=== PATIENT | female | born 2000 | race Two or more races ===

== ENCOUNTER 2020-02-25 21:34 | Emergency (ER) | payer SELFPAY ==
[2020-02-25 21:39] VITALS: BP 123/55; PULSE 107; RESP 18; TEMP 36.8; O2SAT 100
--- NOTE | 2020-02-25 23:39 | ED.GENADULT ---
HPI - General Adult General Chief complaint: Headache Stated complaint: cough, been around someone positive for covid Time Seen by Provider: 02/25/20 23:22 History of Present Illness HPI narrative: Patient presents with her father for multiple complaints. She had a cold exposure 2 days ago. He was a coworker. And yesterday she started with cough, headache, loss of smell. She does not have any pain. She has not had a fever. She is worried because she has a history of asthma. She has not been wheezing. She has both an inhaler and nebulizer at home. She has not recently been on prednisone. She has an appointment in 2 days for COVID testing at the local [facility]. Her boyfriend also has symptoms he also has an appointment for the COVID. She lives with her boys. 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 She has been taking ibuprofen for her symptoms. Surgeries include bilateral myringotomy tube. She does not smoke cigarette, she occasionally drinks alcohol, she does not do marijuana. Onset (ago): day(s) Location: head Severity: mild Related Data Allergies Allergy/AdvReac Type Severity Reaction Status Date / Time cefprozil Allergy Mild DIRRHEA Verified 11/18/17 16:11 Review of Systems Review of Systems: Narrative: CONSTITUTIONAL: Denies fever, chills, or sweats. EYES: Denies visual changes, redness, or discharge. ENT: Denies rhinorrhea, congestion, sore throat, or otalgia. CARDIOVASCULAR: Denies chest pain, palpitations, or edema. RESPIRATORY: She has cough but not dyspnea. GASTROINTESTINAL: Denies abdominal pain, nausea, vomiting, or diarrhea. GENITOURINARY: Denies dysuria or hematuria. SKIN: Denies rash or itching. MUSCULOSKELETAL: Denies back pain, joint pain, or myalgia. NEUROLOGIC: She has headache, but not numbness, or weakness. She says she cannot smell. . PMFSH Surgical History Surgical History History of myringotomy Social History Social History (Updated 02/25/20 @ 23:42 by Malinda Armijo MD) Smoking status: Never smoker Alcohol intake: current Substance use: never Exam Narrative: Exam Narrative: GENERAL: Well-appearing, well-nourished, and in no acute distress. HEAD: Normocephalic, atraumatic. EYES: PERRLA and EOMI. ENT: Nares clear, no rhinorrhea or epistaxis. Mucous membranes moist. NECK: Supple. CHEST: Clear to auscultation. No respiratory distress. HEART: Regular rate and rhythm. No murmur heard. Normal peripheral pulses. ABDOMEN: Soft, nontender, nondistended, normal active bowel sounds. EXTREMITIES: Normal range of motion. No edema. SKIN: Warm, dry, no rash. NEURO: No focal deficits. Alert and oriented x3. PSYCH: Normal mood and affect. Course Vital Signs Vital signs: Vital Signs Temperature 98.3 F 02/25/20 21:39 Pulse Rate 107 H 02/25/20 21:39 Respiratory Rate 18 02/25/20 21:39 Blood Pressure 123/55 L 02/25/20 21:39 Pulse Oximetry 100 02/25/20 21:39 Temperature 98.3 F 02/25/20 21:39 Pulse Rate 107 H 02/25/20 21:39 Respiratory Rate 18 02/25/20 21:39 Blood Pressure 123/55 L 02/25/20 21:39 Pulse Oximetry 100 02/25/20 21:39 Medical Decision Making Medical Records Medical records reviewed: Yes I reviewed the patient's medical records. Vital Signs Vital Signs: Vital Signs Temperature 98.3 F 02/25/20 21:39 Pulse Rate 107 H 02/25/20 21:39 Respiratory Rate 18 02/25/20 21:39 Blood Pressure 123/55 L 02/25/20 21:39 Pulse Oximetry 100 02/25/20 21:39 Temperature 98.3 F 02/25/20 21:39 Pulse Rate 107 H 02/25/20 21:39 Respiratory Rate 18 02/25/20 21:39 Blood Pressure 123/55 L 02/25/20 21:39 Pulse Oximetry 100 02/25/20 21:39 Discharge Plan Discharge Clinical Impression: Cough, Loss of sense of smell Headache Qualifiers: Headache type: unspecified Headache chronicity pattern: unspecified pattern Intractability: not intractable Qualified Code(s): R51 - Headache
[2020-02-25 23:45] VITALS: BP 123/65; PULSE 87; RESP 18; O2SAT 99
== END 2020-02-25 23:45 | disposition home or self-care (01) ==
PROVIDERS: Emergency Provider Emergency Medicine
DX: R05 Cough (principal); R51 Headache; R43.9 Unspecified disturbances of smell and taste; Z20.828 Contact with and (suspected) exposure to other viral communicable diseases
CPT/HCPCS: 99281

== ENCOUNTER 2022-03-20 11:56 | Emergency (ER) | payer SELFPAY ==
[2022-03-20 12:24] VITALS: BP 132/60; PULSE 73; RESP 18; TEMP 36.6; O2SAT 100
--- NOTE | 2022-03-20 12:29 | PC.NURSE ---
pt given container to collect specimen.
--- NOTE | 2022-03-20 16:41 | PC.NURSE ---
pt up to desk to notify RN she is leaving.
== END 2022-03-20 16:41 | disposition left against medical advice (07) ==
LOC: ANHED 16:59
PROVIDERS: Emergency Provider Emergency Medicine
DX: R19.7 Diarrhea, unspecified (principal)
CPT/HCPCS: 87045; 87427; 99199; 99283

== ENCOUNTER 2023-05-20 11:34 | Outpatient (CLI) | payer BC, SELFPAY ==
--- NOTE | ~2023-05-20 | XR_ITS ---
XR abdomen/kub 1V 05/20/2023 12:09 INDICATION: Irritable bowel syndrome. TECHNIQUE: KUB COMPARISON: None FINDINGS: Bowel gas pattern is normal. There is no evidence of free air, mass, organomegaly, ascites or obstruction. No abnormal calculi are seen. The bones appear intact. IMPRESSION: 1: No acute abdominal abnormality identified. Reviewed, dictated and finalized at location B.
[2023-05-20 12:04] LABS: Hematocrit 41.3 % (37.0-47.0); Mean Corpuscular HGB Conc 31.5 g/dl (32-36); Mean Corpuscular Hemoglobin 28.1 pg (26-34); Mean Corpuscular Volume 89.2 fl (80-100); Mean Platelet Volume 11.5 fl (7.4-10.4); Platelet Count Result 227 k/mm3 (150-375); Red Blood Count 4.63 M/mm3 (4.2-5.4); Red Cell Distribution Width 13.5 % (11.5-14.5); White Blood Count 6.2 K/mm3 (4.5-10.0)
[2023-05-20 12:14] LABS: Alanine Aminotransferase 12 U/L (6-35); Albumin Level 4.6 g/dL (3.5-5.1); Alkaline Phosphatase 54 U/L (38-126); Anion Gap 4 mmol/L (8-16); Aspartate Amino Transferase 20 U/L (14-36); Bilirubin,Total 0.5 mg/dL (0.2-1.3); Blood Urea Nitrogen 8 mg/dL (7-17); Calcium 9.6 mg/dL (8.4-10.2); Carbon Dioxide 31 mmol/L (22-30); Chloride 103 mmol/L (98-107); Estimated Glomerular Filt Rate > 60; Glucose 95 mg/dL (65-110); Sodium 138 mmol/L (137-145)
[2023-05-20 13:05] LABS: Erythrocyte Sedimentation Rate 16 mm/hr (0-20)
[2023-05-27 17:32] LABS: Immunoglobulin A 257 mg/dL (47-310)
== END 2023-05-20 11:35 | disposition home or self-care (01) ==
LOC: ANHLAB 11:36
PROVIDERS: Visit Provider Nurse Practitioner
DX: R11.10 Vomiting, unspecified (principal); F41.9 Anxiety disorder, unspecified; K58.2 Mixed irritable bowel syndrome; R11.0 Nausea; R13.10 Dysphagia, unspecified; R14.0 Abdominal distension (gaseous)
CPT/HCPCS: 36415; 74018; 80053; 82784; 84443; 85027; 85652; 86038; 86039; 86140; 86364

== ENCOUNTER 2023-05-29 02:43 | Day surgery (SDC) | payer BC, SELFPAY ==
--- NOTE | 2023-05-27 11:48 | SUR.PREOP ---
Patient called regarding upcoming procedure. Reviewed preop instructions, appointment times, and procedure prep.
[2023-05-29 08:10] VITALS: BP 111/47; PULSE 85; RESP 18; TEMP 36.1; O2SAT 98; BMI 30.4
[2023-05-29] MEDS: LACTATED RINGERS 1,000 ML 150 ML IV CONT (09:05)
--- NOTE | 2023-05-29 09:07 | WPDANESEPPF ---
Anes - Initial Pre Proc Eval Procedure: Operation Date: 05/29/23 09:30 Proposed Procedures p Esophagogastroduodenoscopy - Geo Mills MD Date/Time: 05/29/23 09:07 Surgeon: Geo Mills MD Pre Op Diagnosis: vomiting,dysphagia,nausea,abdominal distension Patient Data Age: 23 Gender: F Height: 1.6 m Weight: 77.8 kg Last Vital Signs Temp 97 F L 05/29/23 08:10 Pulse 85 05/29/23 08:10 Resp 18 05/29/23 08:10 BP 111/47 L 05/29/23 08:10 Pulse Ox 98 05/29/23 08:10 O2 Del Method Room Air 05/29/23 08:10 Allergies Allergy/AdvReac Type Severity Reaction Status Date / Time cefprozil Allergy Mild DIRRHEA Verified 05/28/23 08:53 Home Medications Medication Instructions Recorded Confirmed Type albuterol 90 mcg/actuation aerosol 90 mcg inhalation DAILY PRN 05/13/23 05/28/23 History inhaler Shortness Of Breath dicyclomine 10 mg capsule 10 mg PO QID PRN Diarrhea 05/13/23 05/28/23 History desipramine 10 mg tablet 10 mg PO QHS #90 tabs 05/22/23 05/28/23 Rx Patient hx anesthesia problems: none Family hx anesthesia problems: none Results Review: All pre-operative results and documents have been reviewed as part of the pre-operative evaluation. [facility] Past Medical History Medical History (Updated 05/20/23 @ 12:23 by Debbie Godoy APRN) Abdominal bloating Abdominal distension Abdominal tenderness BMI 30.0-30.9,adult Chronic nausea Dysphagia Irritable bowel syndrome with alternating bowel habits Regurgitation of food Surgical History Surgical History History of myringotomy Family History Family History Father No problems noted. Mother Chronic migraine Sibling Asthma Social History Social History (Updated 05/20/23 @ 10:37 by JOSE R Sanders) Smoking status: Never smoker Second hand tobacco smoke exposure: No Alcohol intake: current Alcohol use details: socially Substance use: current Substance use type: marijuana Other substance usage details: socially Last use: 05/15/23 Lack of Transportation: No Lack of Food: Never True Current Housing: I Have Housing Concerned About Future Housing: No Difficulty Paying Gas/Electric Bills: No Difficulty Paying for Meds: No Currently Unemployed: No Education: Bachelor's Degree Difficulty w/ Childcare or Family Care: No Living arrangements: with roommate(s) Occupation/Education: occupation 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 Informed Consent: The patient's anesthetic plan and its attendant risks and benefits were discussed with the patient/family/POA. Questions were solicited and answers provided to the satisfaction of the patient/family/POA.
--- NOTE | 2023-05-29 09:32 | WPDHPUPDATE1 ---
History and Physical Update Update Date/Time: 05/29/23 09:32 History and Physical has been reviewed, including an updated exam of the patient. There are NO changes in the patient's condition. Risks, benefits, and alternatives have been discussed and questions answered. Patient agrees to proceed with procedure.
[2023-05-29 09:51] VITALS: BP 119/49; PULSE 80; RESP 18; O2SAT 99
[2023-05-29 10:01] VITALS: BP 99/54; PULSE 80; RESP 18; O2SAT 99
[2023-05-29 10:12] VITALS: BP 117/45; PULSE 80; RESP 20; O2SAT 100
== END 2023-05-29 10:15 | disposition home or self-care (01) ==
PROVIDERS: Visit Provider Internal Medicine Gastroenterology
PROC: 0DJ08ZZ Inspection of Upper Intestinal Tract, Via Natural or Artificial Opening Endoscopic (ICD-10-PCS; CPT 43235; principal; 2023-05-29 09:30)
DX: K29.80 Duodenitis without bleeding (principal); K29.50 Unspecified chronic gastritis without bleeding; K58.2 Mixed irritable bowel syndrome; Z79.51 Long term (current) use of inhaled steroids; F12.90 Cannabis use, unspecified, uncomplicated
CPT/HCPCS: 43239; 88305; J2001; J2704; J7120

== ENCOUNTER 2023-07-16 08:37 | Outpatient (CLI) | payer BC, SELFPAY ==
[2023-07-24 19:27] LABS: Calprotectin, Stool 196 mcg/g; Pancreatic Elastase, Stool >500 mcg/g
== END 2023-07-16 08:38 | disposition home or self-care (01) ==
LOC: ANHLAB 08:38
PROVIDERS: Visit Provider Nurse Practitioner
DX: F41.9 Anxiety disorder, unspecified (principal); K58.2 Mixed irritable bowel syndrome; R11.0 Nausea; R11.10 Vomiting, unspecified; R13.10 Dysphagia, unspecified; R14.0 Abdominal distension (gaseous)
CPT/HCPCS: 82653; 83993

== ENCOUNTER 2024-09-07 07:35 | Outpatient (CLI) | payer BC, SELFPAY ==
--- NOTE | ~2024-09-07 | CT_ITS ---
EXAMINATION: CT abdomen pelvis w con DATE: 09/07/2024 07:59 INDICATION: Pelvic pain TECHNIQUE: Computed tomography (CT) of the abdomen and pelvis was performed with 100 cc Omnipaque 350 intravenous contrast. The dose-length product was 402.35 mGy-cm. Automated exposure control and iter ative reconstruction technique were employed. COMPARISON: None. FINDINGS: Lung bases unremarkable. No significant pleural or pericardial effusion. Heart size normal. Trace free fluid in the pelvis, likely physiologic. Nonobstructive bowel gas pattern. The liver, spl een, pancreas, adrenal glands and kidneys are unremarkable. Gallbladder is present. No free air. No s ignificant vascular abnormality. No lymphadenopathy. No abnormal pelvic masses. No acute osseous abno rmality. No evidence for hernia. IMPRESSION: 1. No acute abdominal abnormality. No findings to account for patient's symptoms. Reviewed, dictated and finalized at location B. MARKETING SPECIALIST IMPRESSION: 1. No acute abdominal abnormality. No findings to account for patient's symptom s.
--- OUTSIDE RECORDS SUMMARY | 2024-09-07 07:39 | XMS_ITS | Continuity of Care Document ---
Author Organization [facility] Address [address] [place] [address] Phone Care Team Providers Care Scooping Machine Tender Name Role Phone Juan Antonio Martin MD Unavailable Unavailable Allergies, Adverse Reactions, Alerts Substance Reaction Status Criticality cefprozil Active No Information strawberry Active No Information ALMOND Active No Information celery Active No Information carrot Active No Information pear Active No Information nectarine Active No Information peach Active No Information plum Active No Information apple Active No Information Medications Medication Instructions Dosage Effective Dates (start - stop) Status Comments QVAR (unknown strength) Not Available - Active NASONEX (unknown strength) Not Available - Active ZYRTEC (unknown strength) Not Available - Active Procedures Procedure Date OFFICE/OUTPATIENT VISIT EST OFFICE/OUTPATIENT VISIT EST OFFICE/OUTPATIENT VISIT EST OFFICE/OUTPATIENT VISIT EST OFFICE/OUTPATIENT VISIT EST OFFICE/OUTPATIENT VISIT EST OFFICE/OUTPATIENT VISIT EST OFFICE/OUTPATIENT VISIT EST OFFICE/OUTPATIENT VISIT EST Advance Directives Directive Yes / No Effective Date File Name No Information Encounters Encounter Description Practice Location Reason(s) For Visit Diagnoses Date Provider Providers Copied on Encounter OFFICE/OUTPA TIENT VISIT EST [facility], [address] [place], [place] [address], [place], [address], tel:[phone] [facility] Patellofemoral stress syndrome of right knee Sep-2 201 7 Mario Romano. [address] [place] [address], [id number] . tel:[phone] OFFICE/OUTPA TIENT VISIT EST [facility], [address], [address], [place] tel:[phone] [facility] Patellofemoral stress syndrome of right knee Aug-0 8-201 7 Stazzone Juan Antonio. [address] [place], [place], [id number] . tel: [phone] OFFICE/OUTPA TIENT VISIT EST [facility], [address], [address], [place] tel:[phone] [facility] Patellofemoral stress syndrome of right knee 5-201 7 Stazzone Juan Antonio. [address] [place], [place], [id number] . tel: [phone] OFFICE/OUTPA TIENT VISIT [facility], [address], [address], [place] tel:[phone] [facility] Patellofemoral stress syndrome of right knee November-3 0-201 7 Stazzone Juan Antonio. [address] [place], [place], [id number] . tel: [phone] [facility], [address] [place] [address], [address], [place] tel:[phone] [facility] Patellofemoral stress syndrome of right knee November-2 5-201 7 Stazzone Juan Antonio. [address] [place], [place], [id number] . tel: [phone] OFFICE/OUTPA TIENT VISIT [facility], [address] [place] [address], [address], [place] tel:[phone] [facility] Patellofemoral stress syndrome of right knee Apr-2 0-201 7 Stazzone Juan Antonio. [address] [place], [place], [id number] . tel: [phone] OFFICE/OUTPA TIENT VISIT [facility], [address], [place], [address], [place] tel:[phone] [facility] Patellofemoral stress syndrome of right knee Sep- 7 Stazzone Juan Antonio. [address] [place], [place], [id number] . tel: [phone] OFFICE/OUTPA TIENT VISIT [facility], [address] [address], [place], [address], [place] tel:[phone] [facility] Patellofemoral stress syndrome of right kneeShin splints, right, subsequent encounter Sep-0 7 Stazzone Juan Antonio. [address] [place] [address], [id number] . tel: [phone] OFFICE/OUTPA TIENT VISIT [facility], [address], [address], [place] tel:[phone] [facility] Right foot painShin splints, right, subsequent encounter 7 Stazzone Juan Antonio. [address] [place] [address], [id number] . tel: [phone] OFFICE/OUTPA TIENT VISIT [facility], [address] [place] [address], [address], [place] tel:[phone] [facility] Pain of right lower extremityShin splints, right, initial encounterRight foot pain 7 Stazzone Juan Antonio. [address] [place] [address], [id number] . tel: [phone] [facility], [address] [place] [address], [address], [place] tel:[phone] [facility] Medial tibial stress syndrome, right, subsequent encounter Sep- 3-201 6 Azul Prerna. [address] [place] [address], [address], [place], [place], [id number] . tel: [phone] [facility], [address] [facility], [place], [address], [place] tel:[phone] [facility] Medial tibial stress syndrome, right, subsequent encounter 6 Azul Prerna. [address], [address], [place], [place], [id number] . tel: [phone] [facility], [address] [facility], [place], [address], [place] tel:[phone] [facility] Right leg pain 6 Azul Prerna. [address] [facility], [address], [place], [place], [id number] . tel: [phone] [facility], [address] [facility], [place], [address], [place] tel:[phone] [facility] Medial tibial stress syndrome, right, subsequent encounter 0 6 Azul Prerna. [address] [facility], [address], [place], [place], [id number] . tel: [phone] [facility], [address] [facility], [place], [address], [place] tel:[phone] [facility] Medial tibial stress syndrome, right, initial encounter 6 Azul Prerna. [address] [facility], [address], [place], [place], [id number] . tel: [phone] [facility], [address] [place], [place] [address] [address], [place], [address], [place] tel:[phone] [facility] foot (chief complaint) Right ankle tendonitis 4 Azul Prerna. [address] [facility] [address], [address], [place], [place], [id number] . tel: [phone] Family History Family Member Type Diagnosis Age At Onset No Information Payers Payer name Insurance type Covered alliance party ID Authormoniquea tiajay(s) [facility] Choice/Choice Plus E2 [id number] Social History Type Description Quantity Date Captured Comments Sex Female Smoking Status No Information Chief Complaint And Reason For Visit No Information Reason For Referral Reason For Referral No Information Plan Of Treatment Date Type Action Status Referral Ordered: RADEX KNE COMPL 4/MORE VIEWS RT ordered Referral Ordered: RADEX KNE 3 VIEWS RT ordered Referral Ordered: RADEX FOOT COMPL MINIMUM 3 VIEWS RT ordered Referral Ordered: MRI LXTR OTH/THN JT C-MATRL RT tibia Appointment date/timeframe: 08/10/2015 ordered Referral Ordered: RADEX TIBFIB 2 VIEWS RT ordered Referral Ordered: RADEX ANKLE COMPL MINIMUM 3 VIEWS RT ordered History Of Present Illness Encounter Date Complaint History Of Prese nt Illness foot Functional Status Date Functional Assessmen t No Information Instructions Date Instruction Additional Infor mation Take medication as directed. Rel ated to Patellofemoral stress syndrome of right knee Activity as tolerated. Related t o Patellofemoral stress syndrome of right knee Avoid prolonged bed rest Related to Patellofemoral stress syndrome of right knee Assessments Type Assessment Date assessment Patellofemoral stress syndrome o f right knee Patient Care Teams Name Effective Dates (start - stop) Status Members No Information
--- OUTSIDE RECORDS SUMMARY | 2024-09-07 07:39 | XMS_ITS | Clinical Summary ---
Author Organization [facility] Address [address] [place] [address] Care Team Providers Care Senior Bookkeeper Name Role Phone Rowena East MD Primary Care Provider [phone] Social History Tobacco Use Types Packs/Day Years Used Date Smoking Tobacco: Never Assessed Comments Unknown Sex and Gender Information Value Date Recorded Sex Assigned at Not on file Legal Sex Female 2:36 PM CDT Gender Identity Not on file Sexual Orientation Not on file Plan of Treatment Health Maintenance Due Date Last Done Comments Cervical Cancer Screening Pa p Smear (Age 21 to 29) Every 3 Years 2000 Cervical Cancer Screening 2000 Annual Physical 01/17/2003 HPV Vaccines (1 - 3-dose series) 01/17/2015 Hepatitis C 01/17/2018 DTaP, Tdap and Td Vaccines ( 1 - Tdap) 01/17/2019 Hepatitis B Vaccines (1 of 3 - 19+ 3-dose series) 01/17/2019 COVID-19 Vaccine ( - 2023-2 5 season) 2024 Influenza Adult (#1) 2024 Meningococcal B Vaccine Aged Out No l onger eligible based on patient's age to complete this topic Meningococcal Vaccine Aged Out No octavia iris eligible based on patient's age to complete this topic Pneumococcal Vaccine: Pediat rics (0 to 5 Years) and At-Risk Patients (6 to 64 Years) Aged Out No longer eligible b ased on patient's age to complete this topic RSV Immunizations Under 20 Months Aged Out No longer eligible based on patient's age to complete this topic Insurance [facility] Care Teams Senior Bookkeeper Relationship Specialty Start Date End Date Rowena East MD PCP - General FAMILY PRACTICE 11/19/22
--- OUTSIDE RECORDS SUMMARY | 2024-09-07 07:39 | XMS_ITS | Referral Summary ---
Author Organization [facility] Physician Office Building [address] [place] [id number] Care Team Providers Care Cad Design Engineer Name Role Phone Latonya Yanes NP Primary Care Provider [phone] Claribel Lorenzana MD Unavailable [phone] Veena Merida MD Unavailable Encounters Date Type Department Care Team Description 06/07/2024 12:30 PM [employer]UCATION TEACHER Telemedicine [facility] Virtual Care [address] [place] [id number] Shayna Shabazz NP Acute upper respiratory infection (Primary Dx) 06/07/2024 Patient Self-Triage [facility] [address] [place] [address] Mychart, Generic Provider from Last 3 Months Allergies Active Allergy Reactions Criticality Noted Date Comments Cefprozil Nausea & Vomiting,Na usea And Vomiting Low 08/15/2010 Fruit Extracts Itching Low 06/21/2020 Bananas, apples, peaches, nectarines, plums Grass Pollen Itching Low 06/21/2020 Medications Qvar RediHaler 80 mcg/actuation inhaler TAKE 2 PUFFS BY MOUTH TWICE A DAY 0 Active albuterol (PROAIR DIGIHALER) 90 mcg/actuation inhaler Active nebulizers misc Acti ve olopatadine (PATADAY) 0.2 % ophthalmic solution INSTILL 1 DROP IN EACH EYE ONCE DAILY IF NEEDED. 0 Active fluticasone propionate (FLONASE) 50 mcg/actuation nasal spray SPRAY 1 TO 2 SPRAYS IN NOSTRIL ONCE DAILY 0 Active vit A-vit U-sgwaia-wyxm-joshua er 2,500 unit-100 mg-2,500 mcg capsule Take 1 tablet by mouth daily Active hydrOXYzine (VISTARIL) 25 mg capsule Take 1 capsule (25 mg total) by mouth 3 (three) times a day as needed for anxiety 30 capsule 0 Active famotidine (PEPCID) 40 mg tablet Take 1 tablet (40 mg total) by mouth nightly as needed for heartburn 90 tablet 1 1 Active folic acid (FOLVITE) 1 mg tablet Take 1 tablet (1,000 mcg total) by mouth daily 0 Active dicyclomine (BENTYL) 10 mg capsule Take 1 capsule (10 mg total) by mouth 4 (four) times a day 3 Active desipramine (NOPRAMIN) 10 mg tablet 3 Active omeprazole (PriLOSEC) 40 mg capsule 40 MG ORALLY DAILY 3 Active ondansetron ODT (ZOFRAN-ODT) 4 mg disintegrating tabletIndications: Nausea vomiting and diarrhea Take 1 tablet (4 mg total) by mouth every 8 (eight) hours as needed for nausea or vomiting 20 tablet 4 Active Active Problems Problem Noted Date Diagnosed Date Annual physical exam 03/04/2021 Assessment & Plan (03/04/2021 4:36 PM CDT): -Discussed recommendations for exercise at least 30 minutes moderate to vigorous exercise most days of the week. (minimum 150 minutes weekly) -Discussed MyPlate recommendations and increasing fruits and vegetables. -Cancer screening:; cervical cancer screening- last pap never, due now (has WWE scheduled with [facility]); annual clinical breast exam and monthly self breast exam encouaged. -Immunizations: Tdap today, yearly influenza vaccines -Continue routine dental and vision care. -Labs ordered today: Screen for diabetes mellitus: CMP- up to date; normal Screen for lipid disorders: Lipid profile Screen for venereal disease: declined BMI 24.0-24.9, adult 03/04/2021 Assessment & Plan (03/04/2021 4:33 PM CDT): Patient is a healthy normal BMI. Continue diet and exercise Positive CHRISTIANO (antinuclear antibody) 07/04/2020 Overview (07/04/2020): 06/21/2020 referral placed to rheumatology for positive CHRISTIANO Assessment & Plan (08/16/2020 9:27 AM [employer] SPECIAL EDUCATION TEACHER): Patient is currently being worked up by rheumatology for psoriatic arthritis. She was started on methotrexate once weekly and folic acid supplementation. Recommend continue follow-up with Rheumatology. Mixed anxiety and depressive disorder 06/21/2020 Assessment & Plan (03/04/2021 4:35 PM CDT): Depression is improved. Has failed sertraline and escitalopram (they were too sedating) never tried Wellbutrin 150 mg once daily. Improving with therapy and lifestyle modifications. Continue current treatment. -Patient denied suicidal ideation today, however discussed suicide hotline and call 911/ go to emergency department if suicidal. -Continue therapy. Assessment & Plan (11/27/2020 12:23 PM CDT): Depression is severe. Discussed intensive program for depression. Psychiatry consultation placed at last office visit in July 2020. Discussed the importance of follow through. She was also given resources for [facility] urgent care today. Has failed sertraline and escitalopram (they were too sedating), Start Wellbutrin 150 mg once daily -Discussed potential side effects of medication including adjustment phase including dizziness, nausea, and headache. Discussed not to stop anti-depressant medications abruptly and take only as prescribed. -Patient denied suicidal ideation today, however discussed suicide hotline and call 911/ go to emergency department if suicidal. -Continue therapy. Assessment & Plan (08/16/2020 9:28 AM MID[employer]CHO[employer] SPECIAL EDUCATION TEACHER): Depression is severe. Discussed intensive program for depression. Psychiatry consultation placed today. Stops sertraline due to side effects. Start escitalopram 10 mg daily. -Discussed potential side effects of medication including adjustment phase including dizziness, nausea, and headache. Discussed not to stop anti-depressant medications abruptly and take only as prescribed. -Patient denied suicidal ideation today, however discussed suicide hotline and call 911/ go to emergency department if suicidal. -Continue therapy. Assessment & Plan (06/21/2020 11:08 AM MIDD[employer]CHOOL SPECIAL EDUCATION TEACHER): Start sertraline, gradually taper up to 50 mg daily. Hydroxyzine p.r.n. for increased anxiety and sleep. Recommend avoiding marijuana as this can worsen depression. -Discussed potential side effects of medication including adjustment phase including dizziness, nausea, and headache. Discussed not to stop anti-depressant medications abruptly and take only as prescribed. -Patient denied suicidal ideation today, however discussed suicide hotline and call 911/ go to emergency department if suicidal. -Continue therapy. 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 Constipation was seen on ultrasound. Sample of Linzess was given to patient. Assessment & Plan (03/04/2021 4:34 PM CDT): Recommend continue MiraLax p.r.n.. Recommended Metamucil daily. Increase fiber daily. Recommend continuing to push hydration- 8 glasses water daily. Start nortriptyline once nightly. Reviewed potential side effects. If worsening or not improving in 6 weeks recommend Gastroenterology consultation. Assessment & Plan (08/16/2020 9:29 AM MIDDLE [employer]CHOOL SPECIAL EDUCATION TEACHER): Improved with Miralax PRN. Assessment & Plan (06/21/2020 11:09 AM MIDD[employer]CHOOL SPECIAL EDUCATION TEACHER): Colonoscopy unremarkable 05/02/2011. Recommended treating her anxiety to see if IBS symptoms improved. Can use MiraLax p.r.n. for constipation. Recommend famotidine for her GERD. Increase fiber in her diet and have small frequent meals to ensure adequate nutrition. Will have close clinical follow-up. If she starts having more severe weight loss would recommend re-evaluation with GI. Gastroesophageal reflux disease without esophagi tis 06/21/2020 Assessment & Plan (08/16/2020 9:29 AM MIDD[employer] SCHOOL SPECIAL EDUCATION TEACHER): Improved with famotidine 40 mg nightly PRN Likely triggered from anxiety/ stress. Discussed avoiding caffeine, limiting NSAIDS, and avoiding spicy foods that may trigger GERD symptoms. -Avoid eating 2 hours prior to bed. Assessment & Plan (06/21/2020 11:10 AM MIDD[employer] SCHOOL SPECIAL EDUCATION TEACHER): Start famotidine 40 mg nightly. Likely triggered from anxiety/ stress. Discussed avoiding caffeine, limiting NSAIDS, and avoiding spicy foods that may trigger GERD symptoms. -Avoid eating 2 hours prior to bed. Psoriatic arthritis ([facility]/HCC) 06/21/2020 Assessment & Plan (03/04/2021 4:37 PM CDT): Seeing Dr. Mayers with rheumatology. On methotrexate once weekly and folic acid supplementation. Assessment & Plan (06/21/2020 11:07 AM MIDD[employer]CHOOL SPECIAL EDUCATION TEACHER): Currently stable. Patient has history of polyarthralgia as well. Will check CHRISTIANO today. Family history of polymyalgia rheumatica in her maternal grandmother, otherwise no autoimmune conditions. Dysmenorrhea 07/09/2016 PMDD (premenstrual dysphoric disorder) 6 Lactose intolerance 02/04/2010 Other psoriasis 05/29/2008 Seasonal allergic rhinitis due to pollen 008 Mild persistent asthma Assessment & Plan (03/04/2021 4:34 PM CDT): Asthma is well controlled on current therapy. Managed by her senior software engineer analytics. Assessment & Plan (06/21/2020 11:08 AM MIDD[employer]CHOOL SPECIAL EDUCATION TEACHER): Asthma is well controlled on current therapy. Managed by her senior software engineer analytics. Resolved Problems Problem Noted Date Diagnosed Date Resolved Date IUD (intrauterine device) in place 11/27/2020 09/10/2021 Assessment & Plan (09/10/2021 5:56 PM MIDDLE SCHOOL SPECIAL EDUCATION TEACHER): Mirena IUD removed 05/06/21. Assessment & Plan (11/27/2020 12:22 PM CDT): Referral placed to gynecology for her well-woman care per her request. Mild intermittent asthma 08/31/201209/2019 Still's murmur 08/18/2010 03/04/2021 Contact dermatitis and other eczema, due to unspecified cause 05/29/2008 03/04/2021 Immunizations Immunization Administration Dates Next Due DTaP 02/17/2005, 1,2000,05/19,2000 HPV, Quadrivalent 05/30/2013,06/06/2011,02/28/20 11 Hep A, Adult 03/15/2008,2007 Hep B Vaccine 03/17/2003,2000,2000 HiB 03/17/2003,2000,2000 IPV 02/17/2005, 1,2000,03/11 Influenza, Quadrivalent, Spl it, Preservative Free, Intramuscular 06/21/2020 Influenza, Trivalent, IM (MDV) 06/05/2012 Influenza, Unspecified 05/21/2019(Deferred: Annabelle ent Refused) MMR 02/17/2005,02/02/2001 Meningococcal B, OMV (Bexsero) 01/24/2016 Meningococcal Conjugate (Menveo) 01/24/2016,02/17 Pfizer SARS-CoV-2 Monovalent Vaccination (12+ Yrs) PURPLE 10/15/2020,09/24/2020 Pneumococcal Conjugate 7-Valent 2000,03/11 Tdap 03/04/2021,02/27/2011 Varicella 2007,02/02/2001 Social History Tobacco Use Types Packs/Day Years Used Date Smoking Tobacco: Never Smokeless Tobacco: Never Alcohol Use Standard Drinks/Week Comments Yes 2 (1 standard drink = 0.6 oz pur e alcohol) very infrequent PHQ-2 Answer Date Recorded PHQ-2 Total Score (If total score is 3 or more points, staff should administer the PHQ-9) 0 03/04/2021 Personal Safety Answer Date Recorded Getting School Help Needed Not on file 08/26 Comments No Sex and Gender Information Value Date Recorded Sex Assigned at Not on file Legal Sex Female 5:13 AM [employer] SCHO[employer] SPECIAL EDUCATION TEACHER Gender Identity Female 06/21/2020 8:16 AM [employer] SCHOOL SPECIAL EDUCATION TEACHER Sexual Orientation Not on file Occupation Industry Job Start Date Job End Date Student Not on file Not on file Not on file Last Filed Vital Signs Vital Sign Reading Time Taken Comments Blood Pressure 116/64 08/26/2023 11:45 AM MID[employer] SCHOOL SPECIAL EDUCATION TEACHER Pulse 73 08/26/2023 11:45 AM MID[employer] SCHOOL SPECIAL EDUCATION TEACHER Temperature 36.5 C (97.7 F) 08/26/2023 11:45 AM [employer] SCHOOL SPECIAL EDUCATION TEACHER Respiratory Rate 16 08/26/2023 11:45 AM [employer] SCHO[employer] SPECIAL EDUCATION TEACHER Oxygen Saturation 99% 08/26/2023 11:45 AM MID[employer]CHO[employer] SPECIAL EDUCATION TEACHER Inhaled Oxygen Concentration - - Weight 70.8 kg (156 lb) 08/26/2023 11:45 AM MID[employer] SCHOOL SPECIAL EDUCATION TEACHER Height 160 cm (5' 3 ) 08/26/2023 11:45 AM [employer] SCHOOL SPECIAL EDUCATION TEACHER Body Mass Index 27.63 08/26/2023 11:45 AM [employer]CHOOL SPECIAL EDUCATION TEACHER Plan of Treatment Not on file Procedures Procedure Name Priority Date/Time Associated Diagnosis Comments PAP AND HIGH RISK HPV, REFLEX TO GENOTYPING Routine 05/06/2021 10:23 AM CDT N. GONORRHOEAE/C. TRACHOMATIS AMPLIFICATION Routine 05/06/2021 9:53 AM CDT Screening examination for venereal disease from Last 3 Months or Most Recently Relevant to Health Maintenance Results * Pap and High Risk HPV, reflex to Genotyping (05/06/2021 10:23 AM CDT) Pap test 05/06/2021 10:2 3 AM CDT 05/06/2021 10:23 AM CDT Narrative 05/08/2021 2:32 PM CDT [facility] Department of Pathology [address] [place], [place] [id number] Final Report Note to Patients: This report may contain a detailed description of human tissue sent by a health care provider to the laboratory for pathologic evaluation. The content of this report is essential for diagnosis and may provide important critical findings. This information may be unfamiliar to patients to review without a medical professional present. It is advised that the patient review this report in the presence of a health care provider who can answer questions and explain the details. Patient Name: MINO KILGOREChaz Address: [address] [place] [address]. [address] [address] Gender: F : 2000 (Age: 21) Service: Laboratory Location: Lab [facility] #: [id number] Patient Type: NICHELLE Campos Lab Taken: 05/06/2021 Received: 05/06/2021 Accessioned:: 05/07/2021 Reported: 05/08/2021 Physician(s): Veena Merida Diagnosis: Source of Specimen: SCREENING THIN PREP IMAGED PAP w/ Reflex HPV Specimen Adequacy: - Specimen satisfactory for interpretation; endocervical/transformation zone component absent or insufficient General Category: - Negative for intraepithelial lesion or malignancy Interpretation/Results: - Predominance of coccobacilli consistent with shift in vaginal jaz. Possible bacterial vaginosis MALU Amos(ASCP) Report Electronically Reviewed and Signed Out By MALU Amos(ASCP) 05/08/2021 14:32:47 Specimen(s) Received: A: SCREENING THIN PREP IMAGED PAP w/ Reflex HPV Clinical History: Last Menstrual Period: 04/22/2021 Menstrual History: Irregular Cycles Contraceptive History: IUD The Pap test is a screening test used to aid in the detection of cervical cancer and its precursors. It should not be the sole means by which malignant and premalignant lesions are diagnosed. Both false negative and false positive results may occur. It also has poor sensitivity for the detection of endometrial lesions and should not be used to evaluate suspected endometrial abnormalities. For these reasons it is most important to obtain Pap tests at regular intervals. The performance characteristics of some immunohistochemical stains, fluorescence in-situ hybridization tests and immunophenotyping by flow cytometry cited in this report (if any) were determined by the Surgical Pathology Department at [facility] as part of an ongoing quality control microbiologist program and in compliance with federally mandated regulations drawn from the Clinical Laboratory Improvement Act of 1988 (CLIA '88). Some of these tests rely on the use of analyte specific reagents and are subject to specific labeling requirements by the US Food and Drug Administration. Such diagnostic tests may only be performed in a facility that is certified by the Department of Health and Human Services as a high complexity laboratory under CLIA '88. The FDA has determined that such clearance or approval is not necessary. This test is used for clinical purposes. It should not be regarded as investigational or for research. Nevertheless, federal rules concerning the medical use of analyte specific reagents require that the following disclaimer be attached to the report: This test was developed and its performance characteristics determined by the Surgical Pathology Department [facility]. It has not been cleared or approved by the U. S. Food and Drug Administration. Veena Merida MD LAB CYTOLOGY ORDERABLES Final Result * N. gonorrhoeae/C. trachomatis Amplification Thin prep (05/06/2021 9:53 AM CDT) C. trachomatis Not detected Not detected KAYLA STEWARD N. gonorrhoeae Not detected Not detected KAYLA STEWARD Comment: Testing performed by the [facility] Laboratory. This assay detects Chlamydia trachomatis and Neisseria gonorrhoeae by nucleic acid amplification testing (NAAT). This test is approved by the [facility] Food and Drug Administration and the performance characteristics have been verified by the laboratory. The performance characteristics of this test have not been evaluated in women or individuals less than 16 years of age. Thin prep (None) 05/06/2021 9:53 AM CDT 05/06/2021 3:09 PM CDT Veena Merida MD LAB MICROBIOLOGY - GENERAL ORDERABLES Final Result K[id number] Department [place] [address] from Last 3 Months or Most Recently Relevant to Health Maintenance Insurance [employer] O[employer] Care Teams Cad Design Engineer Relationship Specialty Start Date End Date Latonya Yanes NP PCP - General Family Medicine 06/21/20 Claribel Lorenzana MD [address] [facility] [address] [place] [address] Referring Physician Allergy and Immunology 06/21/20 [place] [id number] [address] [place] [address] Consulting Physician Obstetrics and Gynecology 05/06/21
--- OUTSIDE RECORDS SUMMARY | 2024-09-07 07:39 | XMS_ITS | Clinical Summary ---
Author Organization [facility] [address] [place] [address] Care Team Providers Care Claim Trainee Name Role Phone Latonya Yanes NP Primary Care Provider [phone] Claribel Lorenzana MD Unavailable [phone] Veena Merida MD Unavailable Allergies Active Allergy Reactions Criticality Noted Date [...] NOSTRIL ONCE DAILY 0 Active vit A-vit V-vqlrsz-occt-joshua er 2,500 unit-100 mg-2,500 mcg capsule Take [...] never, due now (has WWE scheduled with MEAT TEAM MEMBER); annual clinical breast exam and monthly self [...] CHRISTIANO Assessment & Plan (08/16/2020 9:27 AM BATTER SCALER): Patient is currently being worked up by [...] through. She was also given resources for [facility] urgent care today. Has failed sertraline and [...] therapy. Assessment & Plan (08/16/2020 9:28 AM BATTER SCALER): Depression is severe. Discussed intensive program for [...] therapy. Assessment & Plan (06/21/2020 11:08 AM BATTER SCALER): Start sertraline, gradually taper up to 50 [...] diarrhea 06/21/2020 Overview (06/29/2020): Constipation noted at academic counselor office on 06/12/2020. Constipation was seen on [...] consultation. Assessment & Plan (08/16/2020 9:29 AM BATTER SCALER): Improved with Miralax PRN. Assessment & Plan (06/21/2020 11:09 AM BATTER SCALER): Colonoscopy unremarkable 05/02/2011. Recommended treating her anxiety [...] 06/21/2020 Assessment & Plan (08/16/2020 9:29 AM BATTER SCALER): Improved with famotidine 40 mg nightly PRN Likely triggered from anxiety/ stress. Discussed avoiding caffeine, limiting NSAIDS, and avoiding spicy foods that may trigger GERD symptoms. -Avoid eating 2 hours prior to bed. Assessment & Plan (06/21/2020 11:10 AM BATTER SCALER): Start famotidine 40 mg nightly. Likely triggered from anxiety/ stress. Discussed avoiding caffeine, limiting NSAIDS, and avoiding spicy foods that may trigger GERD symptoms. -Avoid eating 2 hours prior to bed. Psoriatic arthritis ([facility]) 06/21/2020 Assessment & Plan (03/04/2021 4:37 PM CDT): Seeing Dr. Mayers with rheumatology. On methotrexate once weekly and folic acid supplementation. Assessment & Plan (06/21/2020 11:07 AM BATTER SCALER): Currently stable. Patient has history of polyarthralgia [...] controlled on current therapy. Managed by her embossing press operator apprentice. Assessment & Plan (06/21/2020 11:08 AM BATTER SCALER): Asthma is well controlled on current therapy. Managed by her embossing press operator apprentice. Resolved Problems Problem Noted Date Diagnosed Date Resolved Date IUD (intrauterine device) in place 11/27/2020 09/10/2021 Assessment & Plan (09/10/2021 5:56 PM BATTER SCALER): Mirena IUD removed 05/06/21. Assessment & Plan (11/27/2020 12:22 PM CDT): Referral placed to gynecology for her well-woman care per her request. Mild intermittent asthma 08/31/201209/2019 Still's murmur 08/18/2010 03/04/2021 Contact dermatitis and other eczema, due to unspecified cause 05/29/2008 03/04/2021 Encounters Date Type Department Care Team Description 06/07/2024 12:30 PM BATTER SCALER Telemedicine [facility] Virtual Care [address] [place] [phone] Shayna Shabazz NP Acute upper respiratory infection (Primary Dx) 06/07/2024 Patient Self-Triage [facility] HealthCare/ Physicians [address] [place] [address] Mycroselyn, Generic Provider from Last 3 Months Immunizations Immunization Administration Dates Next Due DTaP [...] Conjugate 7-Valent 2000,03/11 Tdap 03/04/2021,02/27/2011 Varicella 2007,02/02/2001 Surgical History Surgery Date Site/Laterality Comments NO PAST SURGERIES Medical History Medical History Date Comments Anxiety Depression Mild persistent asthma Tibia fracture right Menstrual problem 2013 Psoriasis Psoriatic arthritis (HCC) Still's murmur 08/18/2010 Family History Medical History Relation Name Comments Asthma Brother Yanira No Known Problems Father Arthritis Maternal Grandmother Sarah Autoimmune disease Maternal Grandmother Sarah Breast cancer Maternal Grandmother Sarah Cancer Maternal Grandmother Sarah Diabetes Maternal Grandmother Sarah Heart disease Maternal Grandmother Sarah Polymyalgia rheumatica Maternal Grandmother Sarah Depression Mother Hoda Thyroid disease Mother Hoda Diabetes Paternal Grandfather Jaiden Heart attack Paternal Grandfather Jaiden Heart disease Paternal Grandfather Jaiden Celiac disease Neg Hx Colon cancer Neg Hx Inflammatory bowel disease Neg Hx Relation Name Status Comments Brother Yanira Alive Father Alive Maternal Grandmother Sarah Mother Hoda Alive Paternal Grandfather Jaiden Alive Social History Tobacco Use Types Packs/Day Years [...] on file Legal Sex Female 5:13 AM BATTER SCALER Gender Identity Female 06/21/2020 8:16 AM BATTER SCALER Sexual Orientation Not on file Occupation Industry Job Start Date Job End Date Student Not on file Not on file Not on file Obstetrics History Para Term AB IAB SAB Ectopic Multiple Livin g Live Births 0 0 0 0 0 0 0 0 0 0 0 Last Filed Vital Signs Vital Sign Reading Time Taken Comments Blood Pressure 116/64 08/26/2023 11:45 AM BATTER SCALER Pulse 73 08/26/2023 11:45 AM BATTER SCALER Temperature 36.5 C (97.7 F) 08/26/2023 11:45 AM BATTER SCALER Respiratory Rate 16 08/26/2023 11:45 AM BATTER SCALER Oxygen Saturation 99% 08/26/2023 11:45 AM BATTER SCALER Inhaled Oxygen Concentration - - Weight 70.8 kg (156 lb) 08/26/2023 11:45 AM BATTER SCALER Height 160 cm (5' 3 ) 08/26/2023 11:45 AM BATTER SCALER Body Mass Index 27.63 08/26/2023 11:45 AM BATTER SCALER Plan of Treatment Health Maintenance Due Date Last Done Comments Hepatitis C Screening 2000 Pneumococcal vaccine <65 (1 of 1 - PPSV23 or PCV20) 01/17/2006 2000, 2000 Depression Screening 03/04/2022 03/04/2021, 11/27/2020, 08/16/2020, Additional history exists Cervical Cancer Screening 05/06/2022 05/06/2021 Chlamydia and Gonorrhea (GC/ CT) Screening 05/06/2022 05/06/2021, 04/04/2020 Regular Well Visit/Exam 18-64 05/06/2022 05/06/2021, 03/04/2021 Covid-19 Vaccine (3 - 2023-2 5 season) 2024 10/15/2020, 09/24/2020 Influenza Vaccine (#1) 2024 06/21/2020, 2011 DTaP/Tdap/Td Vaccine (8 - Td or Tdap) 03/04/2031 03/04/2021, 02/27/2011, 02/17/2005, Additional history exists Varicella Vaccines Completed 2007, 02/02/2001 HPV Vaccines Completed 05/30/2013, 05/20, 02/27/2011 Procedures Procedure Name Priority Date/Time Associated Diagnosis [...] 2:32 PM CDT [facility] Department of Pathology [address] [place] [id number] Final Report Note to Patients: This report [...] and explain the details. Patient Name: MINO KILGORE Address: [address] [place] [address]. [id number] Gender: F : 2000 (Age: 21) Service: Laboratory Location: Lab [facility] #: [id number] Patient Type: NICHELLE Campos Lab Taken: 05/06/2021 [...] determined by the Surgical Pathology Department at [facility] as part of an ongoing quality control coordinator program and in compliance with federally mandated [...] characteristics determined by the Surgical Pathology Department [facility]. It has not been cleared or approved by the U. S. Food and Drug Administration. Veena Merida MD LAB CYTOLOGY ORDERABLES Final Result * N. gonorrhoeae/C. trachomatis Amplification Thin prep (05/06/2021 9:53 AM CDT) C. trachomatis Not detected Not detected KAYLA STEWARD N. gonorrhoeae Not detected Not detected KAYLA STEWARD Comment: Testing performed by the [facility]. This assay detects Chlamydia trachomatis and Neisseria gonorrhoeae by nucleic acid amplification testing (NAAT). This test is approved by the [facility] Food and Drug Administration and the performance characteristics have been verified by the laboratory. The performance characteristics of this test have not been evaluated in women or individuals less than 16 years of age. Thin prep (None) 05/06/2021 9:53 AM CDT 05/06/2021 3:09 PM CDT Veena Merida MD LAB MICROBIOLOGY - GENERAL ORDERABLES Final Result KAYLA [address] [address] Department of Laboratories [place], [place] [id number] from Last 3 Months or Most Recently Relevant to Health Maintenance Insurance [employer] Care Teams Claim Trainee Relationship Specialty Start Date End Date Latonya Yanes NP PCP - General Family Medicine 06/21/20 Claribel Lorenzana MD [address] [facility] [address] [place] [address] Referring Physician Allergy and Immunology 06/21/20 [place] [address] [address] [facility] [address] [place] [address] Consulting Physician Obstetrics and Gynecology 05/06/21
== END 2024-09-07 07:36 | disposition home or self-care (01) ==
PROVIDERS: Visit Provider Nurse Practitioner
DX: R19.5 Other fecal abnormalities (principal); R10.31 Right lower quadrant pain
CPT/HCPCS: 74177; Q9967

== ENCOUNTER 2024-09-08 09:47 | Outpatient (CLI) | payer BC, SELFPAY ==
--- OUTSIDE RECORDS SUMMARY | 2024-09-08 10:03 | XMS_ITS | Continuity of Care Document ---
Author Organization [facility] Address [address] [place] [address] Phone Care Team Providers Care Facilities Operator Name Role Phone Juan Antonio Martin MD [...] Copied on Encounter OFFICE/OUTPA TIENT VISIT EST [facility], [address] [place], [place] [address], [place], [address], tel:[phone] [facility] Patellofemoral stress syndrome of right knee Sep-2 201 7 Mario Romano. [address] [place] [address], [id number] . tel:[phone] OFFICE/OUTPA TIENT VISIT EST [facility], [address], [address], [place] tel:[phone] [facility] Patellofemoral stress syndrome of right knee Aug-0 8-201 7 Stazzone Juan Antonio. [address] [place], [place], [id number] . tel: [phone] OFFICE/OUTPA TIENT VISIT EST [facility], [address], [address], [place] tel:[phone] [facility] Patellofemoral stress syndrome of right knee 5-201 7 Stazzone Juan Antonio. [address] [place], [place], [id number] . tel: [phone] OFFICE/OUTPA TIENT VISIT [facility], [address], [address], [place] tel:[phone] [facility] Patellofemoral stress syndrome of right knee November-3 0-201 7 Stazzone Juan Antonio. [address] [place], [place], [id number] . tel: [phone] [facility], [address] [place] [address], [address], [place] tel:[phone] [facility] Patellofemoral stress syndrome of right knee November-2 5-201 7 Stazzone Juan Antonio. [address] [place], [place], [id number] . tel: [phone] OFFICE/OUTPA TIENT VISIT [facility], [address] [place] [address], [address], [place] tel:[phone] [facility] Patellofemoral stress syndrome of right knee Apr-2 0-201 7 Stazzone Juan Antonio. [address] [place], [place], [id number] . tel: [phone] OFFICE/OUTPA TIENT VISIT [facility], [address] [facility] [address], [address], [place] tel:[phone] [facility] Patellofemoral stress syndrome of right knee Sep- 7 Stazzone Juan Antonio. [address] [place], [place], [id number] . tel: [phone] OFFICE/OUTPA TIENT VISIT [facility], [address] [address], [place], [address], [place] tel:[phone] [facility] Patellofemoral stress syndrome of right kneeShin splints, right, subsequent encounter Sep-0 7 Stazzone Juan Antonio. [address] [place] [address], [id number] . tel: [phone] OFFICE/OUTPA TIENT VISIT [facility], [address], [address], [place] tel:[phone] [facility] Right foot painShin splints, right, subsequent encounter 7 Stazzone Juan Antonio. [address] [place] [address], [id number] . tel: [phone] OFFICE/OUTPA TIENT VISIT [facility], [address] [place] [address], [address], [place] tel:[phone] [facility] Pain of right lower extremityShin splints, right, initial encounterRight foot pain 7 Stazzone Juan Antonio. [address] [place] [address], [id number] . tel: [phone] [facility], [address] [place] [address], [address], [place] tel:[phone] [facility] Medial tibial stress syndrome, right, subsequent encounter Sep- 3-201 6 Azul Prerna. [address] [place] [address], [address], [place], [place], [id number] . tel: [phone] [facility], [address] [facility] [address], [place], [address], [place] tel:[phone] [facility] Medial tibial stress syndrome, right, subsequent encounter 6 Azul Prerna. [address] [facility], [address], [place], [place], [id number] . tel: [phone] [facility], [address] [facility] [address], [place], [address], [place] tel:[phone] [facility] Right leg pain 6 Azul Prerna. [address] [facility], [address], [place], [place], [id number] . tel: [phone] [facility], [address] [facility] [address], [place], [address], [place] tel:[phone] [facility] Medial tibial stress syndrome, right, subsequent encounter 0 6 Azul Prerna. [address] [facility], [address], [place], [place], [id number] . tel: [phone] [facility], [address] [facility] [address], [place], [address], [place] tel:[phone] [facility] Medial tibial stress syndrome, right, initial encounter 6 Azul Prerna. [address] [facility], [address], [place], [place], [id number] . tel: [phone] [facility], [address] [place] [address], [place], [address], [place] tel:[phone] [facility] foot (chief complaint) Right ankle tendonitis 4 Azul Rperna. [address] [facility], [address], [place], [place], [id number] . tel: [phone] Family History Family Member Type Diagnosis Age At Onset No Information Payers Payer name Insurance type Covered alliance party ID Authormoniquea tiajay(s) [facility] Choice/Choice Plus [id number] Social History Type Description Quantity Date Captured [...] Information Instructions Date Instruction Additional Infor mation Avoid prolonged bed rest Related to Patellofemoral stress syndrome of right knee Activity as tolerated. Related t o Patellofemoral stress syndrome of right knee Take medication as directed. Rel ated to Patellofemoral stress syndrome of right knee Assessments Type Assessment Date assessment Patellofemoral stress syndrome o f right knee Patient Care Teams Name Effective Dates (start - stop) Status Members No Information
--- OUTSIDE RECORDS SUMMARY | 2024-09-08 10:03 | XMS_ITS | Clinical Summary ---
Author Organization [facility] Building [address] [place] [address] Care Team Providers Care English Tutor Name Role Phone Latonya Yanes NP Primary Care Provider [phone] Claribel Lorenzana MD Unavailable [phone] Veena Merida MD Unavailable Allergies Active [...] NOSTRIL ONCE DAILY 0 Active vit A-vit S-yxhkol-jhxn-joshua er 2,500 unit-100 mg-2,500 mcg capsule Take [...] never, due now (has WWE scheduled with FLUME WORKER); annual clinical breast exam and monthly self [...] CHRISTIANO Assessment & Plan (08/16/2020 9:27 AM YEAST STACKER): Patient is currently being worked up by [...] through. She was also given resources for [facility] urgent care today. Has failed sertraline [...] therapy. Assessment & Plan (08/16/2020 9:28 AM YEAST STACKER): Depression is severe. Discussed intensive program for [...] therapy. Assessment & Plan (06/21/2020 11:08 AM YEAST STACKER): Start sertraline, gradually taper up to 50 [...] diarrhea 06/21/2020 Overview (06/29/2020): Constipation noted at armored transport service manager office on 06/12/2020. Constipation was seen on [...] consultation. Assessment & Plan (08/16/2020 9:29 AM YEAST STACKER): Improved with Miralax PRN. Assessment & Plan (06/21/2020 11:09 AM YEAST STACKER): Colonoscopy unremarkable 05/02/2011. Recommended treating her anxiety [...] 06/21/2020 Assessment & Plan (08/16/2020 9:29 AM YEAST STACKER): Improved with famotidine 40 mg nightly PRN Likely triggered from anxiety/ stress. Discussed avoiding caffeine, limiting NSAIDS, and avoiding spicy foods that may trigger GERD symptoms. -Avoid eating 2 hours prior to bed. Assessment & Plan (06/21/2020 11:10 AM YEAST STACKER): Start famotidine 40 mg nightly. Likely triggered from anxiety/ stress. Discussed avoiding caffeine, limiting NSAIDS, and avoiding spicy foods that may trigger GERD symptoms. -Avoid eating 2 hours prior to bed. Psoriatic arthritis ([facility]) 06/21/2020 Assessment & Plan (03/04/2021 4:37 PM CDT): Seeing Dr. Mayers with rheumatology. On methotrexate once weekly and folic acid supplementation. Assessment & Plan (06/21/2020 11:07 AM YEAST STACKER): Currently stable. Patient has history of polyarthralgia [...] controlled on current therapy. Managed by her detail technician. Assessment & Plan (06/21/2020 11:08 AM YEAST STACKER): Asthma is well controlled on current therapy. Managed by her detail technician. Resolved Problems Problem Noted Date Diagnosed Date Resolved Date IUD (intrauterine device) in place 11/27/2020 09/10/2021 Assessment & Plan (09/10/2021 5:56 PM YEAST STACKER): Mirena IUD removed 05/06/21. Assessment & Plan [...] on file Legal Sex Female 5:13 AM YEAST STACKER Gender Identity Female 06/21/2020 8:16 AM YEAST STACKER Sexual Orientation Not on file Occupation Industry Job Start Date Job End Date Student Not on file Not on file Not on file Obstetrics History Para Term AB IAB SAB Ectopic Multiple Livin g Live Births 0 0 0 0 0 0 0 0 0 0 0 Last Filed Vital Signs Vital Sign Reading Time Taken Comments Blood Pressure 116/64 08/26/2023 11:45 AM YEAST STACKER Pulse 73 08/26/2023 11:45 AM YEAST STACKER Temperature 36.5 C (97.7 F) 08/26/2023 11:45 AM YEAST STACKER Respiratory Rate 16 08/26/2023 11:45 AM YEAST STACKER Oxygen Saturation 99% 08/26/2023 11:45 AM YEAST STACKER Inhaled Oxygen Concentration - - Weight 70.8 kg (156 lb) 08/26/2023 11:45 AM YEAST STACKER Height 160 cm (5' 3 ) 08/26/2023 11:45 AM YEAST STACKER Body Mass Index 27.63 08/26/2023 11:45 AM YEAST STACKER Plan of Treatment Health Maintenance Due Date Last Done Comments Hepatitis C Screening 2000 Pneumococcal vaccine <65 (1 of 1 - PPSV23) 01/17/2006 2000, 2000 Depression Screening 03/04/2022 03/04/2021, 11/27/2020, 08/16/2020, Additional history exists Cervical Cancer Screening 05/06/2022 05/06/2021 Chlamydia and Gonorrhea (GC/ CT) Screening 05/06/2022 05/06/2021, 04/04/2020 Regular Well Visit/Exam 18-64 05/06/2022 05/06/2021, 03/04/2021 Covid-19 Vaccine (3 2 5 season) 2024 10/15/2020, 09/24/2020 Influenza Vaccine (#1) 2024 06/21/2020, 2011 DTaP/Tdap/Td Vaccine (8 - Td or Tdap) 03/04/2031 03/04/2021, 02/27/2011, 02/17/2005, Additional history exists Hepatitis B Screening Completed 03/17/2003 , 2000, 2000 Varicella Vaccines Completed 2007, 02/02/2001 HPV Vaccines [...] AM CDT Narrative 05/08/2021 2:32 PM CDT [facility] Department of Pathology [address] [place] [address] Final Report Note to Patients: This report [...] the details. Patient Name: MINO KILGORE Address: [address] [place] [address]. [address] [id number] Gender: F : 2000 (Age: 21) Service: Laboratory Location: Lab [facility] #: [id number] Patient Type: Ref Lab Taken: 05/06/2021 Received: 05/06/2021 Accessioned:: 05/07/2021 [...] by the Surgical Pathology Department at [facility] as part of an ongoing quality control manager program and in compliance with federally mandated [...] characteristics determined by the Surgical Pathology Department [facility]. It has not been cleared or approved by the U. S. Food and Drug Administration. Veena Merida MD LAB CYTOLOGY ORDERABLES Final Result * N. gonorrhoeae/C. trachomatis Amplification Thin prep (05/06/2021 9:53 AM CDT) C. trachomatis Not detected Not detected KAYLA STEWARD N. gonorrhoeae Not detected Not detected KAYLA STEWARD Comment: Testing performed by the [facility]. This assay detects Chlamydia trachomatis and Neisseria gonorrhoeae by nucleic acid amplification testing (NAAT). This test is approved by the [facility] Food and Drug Administration and the performance characteristics have been verified by the laboratory. The performance characteristics of this test have not been evaluated in women or individuals less than 16 years of age. Thin prep (None) 05/06/2021 9:53 AM CDT 05/06/2021 3:09 PM CDT Veena Merida MD LAB MICROBIOLOGY - GENERAL ORDERABLES Final Result KAYLA STEWARD [address] Department [place] [address] from Last 3 Months or Most Recently Relevant to Health Maintenance Insurance [employer] O[employer] OOS Care Teams English Tutor Relationship Specialty Start Date End Date Latonya Yanes NP PCP - General Family Medicine 06/21/20 Claribel Lorenzana MD [address] [facility] [address] [facility] [address] [place] [address] Referring Physician Allergy and Immunology 06/21/20 [place] [address] [place] [address] Consulting Physician Obstetrics and Gynecology 05/06/21
--- OUTSIDE RECORDS SUMMARY | 2024-09-08 10:03 | XMS_ITS | Clinical Summary ---
Author Organization [facility] Address [address] [place] [address] Care Team Providers Care Gis Professor Name Role Phone Rowena East MD Primary Care Provider [phone] Social History Tobacco Use Types Packs/Day Years [...] patient's age to complete this topic Insurance [facility] Care Teams Gis Professor Relationship Specialty Start Date End Date Rowena East MD PCP - General FAMILY PRACTICE 11/19/22
--- OUTSIDE RECORDS SUMMARY | 2024-09-08 10:03 | XMS_ITS | Referral Summary ---
Author Organization [facility] Physician Office Building [address] [place] [address] Care Team Providers Care Aviation Operations Specialist Name Role Phone Latonya Yanes NP Primary Care Provider [phone] Claribel Lorenzana MD Unavailable [phone] Veena Merida MD Unavailable Allergies Active [...] NOSTRIL ONCE DAILY 0 Active vit A-vit O-dtlspf-xhvp-joshua er 2,500 unit-100 mg-2,500 mcg capsule Take [...] never, due now (has WWE scheduled with QUALITY ENGINEERING MANAGER); annual clinical breast exam and monthly self [...] CHRISTIANO Assessment & Plan (08/16/2020 9:27 AM HEMATOLOGY SUPERVISOR): Patient is currently being worked up by [...] through. She was also given resources for [facility] urgent care today. Has failed sertraline and [...] therapy. Assessment & Plan (08/16/2020 9:28 AM HEMATOLOGY SUPERVISOR): Depression is severe. Discussed intensive program for [...] therapy. Assessment & Plan (06/21/2020 11:08 AM HEMATOLOGY SUPERVISOR): Start sertraline, gradually taper up to 50 [...] diarrhea 06/21/2020 Overview (06/29/2020): Constipation noted at nut picker office on 06/12/2020. Constipation was seen on [...] consultation. Assessment & Plan (08/16/2020 9:29 AM HEMATOLOGY SUPERVISOR): Improved with Miralax PRN. Assessment & Plan (06/21/2020 11:09 AM HEMATOLOGY SUPERVISOR): Colonoscopy unremarkable 05/02/2011. Recommended treating her anxiety [...] 06/21/2020 Assessment & Plan (08/16/2020 9:29 AM HEMATOLOGY SUPERVISOR): Improved with famotidine 40 mg nightly PRN Likely triggered from anxiety/ stress. Discussed avoiding caffeine, limiting NSAIDS, and avoiding spicy foods that may trigger GERD symptoms. -Avoid eating 2 hours prior to bed. Assessment & Plan (06/21/2020 11:10 AM HEMATOLOGY SUPERVISOR): Start famotidine 40 mg nightly. Likely triggered from anxiety/ stress. Discussed avoiding caffeine, limiting NSAIDS, and avoiding spicy foods that may trigger GERD symptoms. -Avoid eating 2 hours prior to bed. Psoriatic arthritis ([facility]) 06/21/2020 Assessment & Plan (03/04/2021 4:37 PM CDT): Seeing Dr. Mayers with rheumatology. On methotrexate once weekly and folic acid supplementation. Assessment & Plan (06/21/2020 11:07 AM HEMATOLOGY SUPERVISOR): Currently stable. Patient has history of polyarthralgia [...] controlled on current therapy. Managed by her call center associate. Assessment & Plan (06/21/2020 11:08 AM HEMATOLOGY SUPERVISOR): Asthma is well controlled on current therapy. Managed by her call center associate. Resolved Problems Problem Noted Date Diagnosed Date Resolved Date IUD (intrauterine device) in place 11/27/2020 09/10/2021 Assessment & Plan (09/10/2021 5:56 PM HEMATOLOGY SUPERVISOR): Mirena IUD removed 05/06/21. Assessment & Plan [...] on file Legal Sex Female 5:13 AM HEMATOLOGY SUPERVISOR Gender Identity Female 06/21/2020 8:16 AM HEMATOLOGY SUPERVISOR Sexual Orientation Not on file Occupation Industry Job Start Date Job End Date Student Not on file Not on file Not on file Last Filed Vital Signs Vital Sign Reading Time Taken Comments Blood Pressure 116/64 08/26/2023 11:45 AM HEMATOLOGY SUPERVISOR Pulse 73 08/26/2023 11:45 AM HEMATOLOGY SUPERVISOR Temperature 36.5 C (97.7 F) 08/26/2023 11:45 AM HEMATOLOGY SUPERVISOR Respiratory Rate 16 08/26/2023 11:45 AM HEMATOLOGY SUPERVISOR Oxygen Saturation 99% 08/26/2023 11:45 AM HEMATOLOGY SUPERVISOR Inhaled Oxygen Concentration - - Weight 70.8 kg (156 lb) 08/26/2023 11:45 AM HEMATOLOGY SUPERVISOR Height 160 cm (5' 3 ) 08/26/2023 11:45 AM HEMATOLOGY SUPERVISOR Body Mass Index 27.63 08/26/2023 11:45 AM HEMATOLOGY SUPERVISOR Plan of Treatment Not on file Procedures [...] AM CDT Narrative 05/08/2021 2:32 PM CDT [facility] Department of Pathology [address] [place] [address] Final Report Note to Patients: This report [...] questions and explain the details. Patient Name: ANGLE KILGORE Address: [address] [place] [address]. #[place] [address] Gender: F : 2000 (Age: 21) Service: Laboratory Location: Lab [facility] #: [id number] Patient Type: Ref Lab Taken: 05/06/2021 Received: [...] determined by the Surgical Pathology Department at [facility] as part of an ongoing quality assurance monitor final program and in compliance with federally mandated [...] characteristics determined by the Surgical Pathology Department [facility]. It has not been cleared or approved by the U. S. Food and Drug Administration. Veena Merida MD LAB CYTOLOGY ORDERABLES Final Result * N. gonorrhoeae/C. trachomatis Amplification Thin prep (05/06/2021 9:53 AM CDT) C. trachomatis Not detected Not detected KAYLA STEWARD N. gonorrhoeae Not detected Not detected KAYLA STEWARD Comment: Testing performed by the [facility] Laboratory. This assay detects Chlamydia trachomatis and Neisseria gonorrhoeae by nucleic acid amplification testing (NAAT). This test is approved by the [facility] Food and Drug Administration and the performance characteristics have been verified by the laboratory. The performance characteristics of this test have not been evaluated in women or individuals less than 16 years of age. Thin prep (None) 05/06/2021 9:53 AM CDT 05/06/2021 3:09 PM CDT Veena Merida MD LAB MICROBIOLOGY - GENERAL ORDERABLES Final Result KAYLA STEWARD [id number] Department [place] [address] from Last 3 Months or Most Recently Relevant to Health Maintenance Insurance [employer] [address] [place] [address] [employer] ACCESS OOS Care Teams Aviation Operations Specialist Relationship Specialty Start Date End Date Latonya Yanes NP PCP - General Family Medicine 06/21/20 Claribel Lorenzana MD [address] [facility] [address] [place] [address] Referring Physician Allergy and Immunology 06/21/20 [place] [id number] [address] [facility] [address] [place] [address] Consulting Physician Obstetrics and Gynecology 05/06/21
== END 2024-09-08 09:48 | disposition home or self-care (01) ==
LOC: ANHLAB 09:48
PROVIDERS: Visit Provider Nurse Practitioner
DX: K92.1 Melena (principal)
CPT/HCPCS: 87045; 87177; 87209; 87269; 87427; 87449

== ENCOUNTER 2024-11-17 01:20 | Day surgery (SDC) | payer BC, SELFPAY ==
[2024-10-04 12:05] VITALS: BMI 26.6
--- OUTSIDE RECORDS SUMMARY | 2024-10-14 00:28 | XMS_ITS | Clinical Summary ---
Author Organization [facility] Address [address] [place] [address] Care Team Providers Care District Sales Leader Name Role Phone Rowena East MD Primary Care Provider [phone] Social History Tobacco Use Types Packs/Day Years [...] patient's age to complete this topic Insurance [facility] Care Teams District Sales Leader Relationship Specialty Start Date End Date Rowena East MD PCP - General FAMILY PRACTICE 11/19/22
--- OUTSIDE RECORDS SUMMARY | 2024-10-14 00:28 | XMS_ITS | Clinical Summary ---
Author Organization [facility] Physician Office Building [address] [place] [phone] Care Team Providers Care Burnishing Machine Operator Name Role Phone Latonya Yanes NP Primary Care Provider [phone] Claribel Lorenzana MD Unavailable [phone] Veena Merida MD Unavailable Allergies Active [...] NOSTRIL ONCE DAILY 0 Active vit A-vit Z-urdnna-yhht-joshua er 2,500 unit-100 mg-2,500 mcg capsule Take [...] never, due now (has WWE scheduled with SEWAGE PLANT SUPERVISOR); annual clinical breast exam and monthly self [...] CHRISTIANO Assessment & Plan (08/16/2020 9:27 AM VOLUNTEER SERVICES COORDINATOR): Patient is currently being worked up by [...] therapy. Assessment & Plan (08/16/2020 9:28 AM VOLUNTEER SERVICES COORDINATOR): Depression is severe. Discussed intensive program for [...] therapy. Assessment & Plan (06/21/2020 11:08 AM VOLUNTEER SERVICES COORDINATOR): Start sertraline, gradually taper up to 50 [...] diarrhea 06/21/2020 Overview (06/29/2020): Constipation noted at bioassayist office on 06/12/2020. Constipation was seen on [...] consultation. Assessment & Plan (08/16/2020 9:29 AM VOLUNTEER SERVICES COORDINATOR): Improved with Miralax PRN. Assessment & Plan (06/21/2020 11:09 AM VOLUNTEER SERVICES COORDINATOR): Colonoscopy unremarkable 05/02/2011. Recommended treating her anxiety [...] 06/21/2020 Assessment & Plan (08/16/2020 9:29 AM VOLUNTEER SERVICES COORDINATOR): Improved with famotidine 40 mg nightly PRN Likely triggered from anxiety/ stress. Discussed avoiding caffeine, limiting NSAIDS, and avoiding spicy foods that may trigger GERD symptoms. -Avoid eating 2 hours prior to bed. Assessment & Plan (06/21/2020 11:10 AM VOLUNTEER SERVICES COORDINATOR): Start famotidine 40 mg nightly. Likely triggered from anxiety/ stress. Discussed avoiding caffeine, limiting NSAIDS, and avoiding spicy foods that may trigger GERD symptoms. -Avoid eating 2 hours prior to bed. Psoriatic arthritis ([facility]) 06/21/2020 Assessment & Plan (03/04/2021 4:37 PM CDT): Seeing Dr. Mayers with rheumatology. On methotrexate once weekly and folic acid supplementation. Assessment & Plan (06/21/2020 11:07 AM VOLUNTEER SERVICES COORDINATOR): Currently stable. Patient has history of polyarthralgia [...] controlled on current therapy. Managed by her enrollment services dean. Assessment & Plan (06/21/2020 11:08 AM VOLUNTEER SERVICES COORDINATOR): Asthma is well controlled on current therapy. Managed by her enrollment services dean. Resolved Problems Problem Noted Date Diagnosed Date Resolved Date IUD (intrauterine device) in place 11/27/2020 09/10/2021 Assessment & Plan (09/10/2021 5:56 PM VOLUNTEER SERVICES COORDINATOR): Mirena IUD removed 05/06/21. Assessment & Plan [...] on file Legal Sex Female 5:13 AM VOLUNTEER SERVICES COORDINATOR Gender Identity Female 06/21/2020 8:16 AM VOLUNTEER SERVICES COORDINATOR Sexual Orientation Not on file Occupation Industry Job Start Date Job End Date Student Not on file Not on file Not on file Obstetrics History Para Term AB IAB SAB Ectopic Multiple Livin g Live Births 0 0 0 0 0 0 0 0 0 0 0 Last Filed Vital Signs Vital Sign Reading Time Taken Comments Blood Pressure 116/64 08/26/2023 11:45 AM VOLUNTEER SERVICES COORDINATOR Pulse 73 08/26/2023 11:45 AM VOLUNTEER SERVICES COORDINATOR Temperature 36.5 C (97.7 F) 08/26/2023 11:45 AM VOLUNTEER SERVICES COORDINATOR Respiratory Rate 16 08/26/2023 11:45 AM VOLUNTEER SERVICES COORDINATOR Oxygen Saturation 99% 08/26/2023 11:45 AM VOLUNTEER SERVICES COORDINATOR Inhaled Oxygen Concentration - - Weight 70.8 kg (156 lb) 08/26/2023 11:45 AM VOLUNTEER SERVICES COORDINATOR Height 160 cm (5' 3 ) 08/26/2023 11:45 AM VOLUNTEER SERVICES COORDINATOR Body Mass Index 27.63 08/26/2023 11:45 AM VOLUNTEER SERVICES COORDINATOR Plan of Treatment Health Maintenance Due Date [...] AM CDT Narrative 05/08/2021 2:32 PM CDT [facility] Department of Pathology [address] [place] [address] Final Report Note to Patients: This report [...] the details. Patient Name: MINO KILGORE Address: [address] [place] [address]. #[place] [address] Gender: F : 2000 (Age: 21) Service: Laboratory Location: Lab [facility] #: [id number] Patient Type: Ref Lab Taken: 05/06/2021 Received: [...] determined by the Surgical Pathology Department at [facility] as part of an ongoing quality facilitator program and in compliance with federally mandated [...] characteristics determined by the Surgical Pathology Department [facility]. It has not been cleared or approved by the U. S. Food and Drug Administration. Veena Merida MD LAB CYTOLOGY ORDERABLES Final Result * N. gonorrhoeae/C. trachomatis Amplification Thin prep (05/06/2021 9:53 AM CDT) C. trachomatis Not detected Not detected KAYLA STEWARD N. gonorrhoeae Not detected Not detected KAYLA STEWARD Comment: Testing performed by the [facility]. This assay detects Chlamydia trachomatis and Neisseria gonorrhoeae by nucleic acid amplification testing (NAAT). This test is approved by the [facility] Food and Drug Administration and the performance characteristics have been verified by the laboratory. The performance characteristics of this test have not been evaluated in women or individuals less than 16 years of age. Thin prep (None) 05/06/2021 9:53 AM CDT 05/06/2021 3:09 PM CDT Veena Merida MD LAB MICROBIOLOGY - GENERAL ORDERABLES Final Result KAYLA STEWARD [id number] Department [place] [address] from Last 3 Months or Most Recently Relevant to Health Maintenance Insurance [employer] OOS [facility] Address: [facility] [id number] [place] [address] [employer] ACCESS O[employer] Care Teams Burnishing Machine Operator Relationship Specialty Start Date End Date Latonya Yanes NP PCP - General Family Medicine 06/21/20 Claribel Lorenzana MD [address] [place] [address] Referring Physician Allergy and Immunology 06/21/20 [place] [id number] [place] [address] Consulting Physician Obstetrics and Gynecology 05/06/21
--- OUTSIDE RECORDS SUMMARY | 2024-10-14 00:28 | XMS_ITS | Referral Summary ---
Author Organization [facility] Physician Office Building [address] [place] [phone] Care Team Providers Care Senior Copywriter Name Role Phone Latonya Yanes NP Primary Care Provider [phone] Claribel Lorenzana MD Unavailable [phone] Veena Merida MD Unavailable Allergies Active [...] NOSTRIL ONCE DAILY 0 Active vit A-vit Q-xxotdz-qlaf-joshua er 2,500 unit-100 mg-2,500 mcg capsule Take [...] never, due now (has WWE scheduled with SUBSORTER); annual clinical breast exam and monthly self [...] CHRISTIANO Assessment & Plan (08/16/2020 9:27 AM FIELD MACHINIST): Patient is currently being worked up by [...] through. She was also given resources for [facility] urgent care today. Has failed sertraline and [...] therapy. Assessment & Plan (08/16/2020 9:28 AM FIELD MACHINIST): Depression is severe. Discussed intensive program for [...] therapy. Assessment & Plan (06/21/2020 11:08 AM FIELD MACHINIST): Start sertraline, gradually taper up to 50 [...] diarrhea 06/21/2020 Overview (06/29/2020): Constipation noted at analyst sales office on 06/12/2020. Constipation was seen on [...] consultation. Assessment & Plan (08/16/2020 9:29 AM FIELD MACHINIST): Improved with Miralax PRN. Assessment & Plan (06/21/2020 11:09 AM FIELD MACHINIST): Colonoscopy unremarkable 05/02/2011. Recommended treating her anxiety [...] 06/21/2020 Assessment & Plan (08/16/2020 9:29 AM FIELD MACHINIST): Improved with famotidine 40 mg nightly PRN Likely triggered from anxiety/ stress. Discussed avoiding caffeine, limiting NSAIDS, and avoiding spicy foods that may trigger GERD symptoms. -Avoid eating 2 hours prior to bed. Assessment & Plan (06/21/2020 11:10 AM FIELD MACHINIST): Start famotidine 40 mg nightly. Likely triggered from anxiety/ stress. Discussed avoiding caffeine, limiting NSAIDS, and avoiding spicy foods that may trigger GERD symptoms. -Avoid eating 2 hours prior to bed. Psoriatic arthritis ([facility]) 06/21/2020 Assessment & Plan (03/04/2021 4:37 PM CDT): Seeing Dr. Mayers with rheumatology. On methotrexate once weekly and folic acid supplementation. Assessment & Plan (06/21/2020 11:07 AM FIELD MACHINIST): Currently stable. Patient has history of polyarthralgia [...] controlled on current therapy. Managed by her steel analyst. Assessment & Plan (06/21/2020 11:08 AM FIELD MACHINIST): Asthma is well controlled on current therapy. Managed by her steel analyst. Resolved Problems Problem Noted Date Diagnosed Date Resolved Date IUD (intrauterine device) in place 11/27/2020 09/10/2021 Assessment & Plan (09/10/2021 5:56 PM FIELD MACHINIST): Mirena IUD removed 05/06/21. Assessment & Plan [...] on file Legal Sex Female 5:13 AM FIELD MACHINIST Gender Identity Female 06/21/2020 8:16 AM FIELD MACHINIST Sexual Orientation Not on file Occupation Industry Job Start Date Job End Date Student Not on file Not on file Not on file Last Filed Vital Signs Vital Sign Reading Time Taken Comments Blood Pressure 116/64 08/26/2023 11:45 AM FIELD MACHINIST Pulse 73 08/26/2023 11:45 AM FIELD MACHINIST Temperature 36.5 C (97.7 F) 08/26/2023 11:45 AM FIELD MACHINIST Respiratory Rate 16 08/26/2023 11:45 AM FIELD MACHINIST Oxygen Saturation 99% 08/26/2023 11:45 AM FIELD MACHINIST Inhaled Oxygen Concentration - - Weight 70.8 kg (156 lb) 08/26/2023 11:45 AM FIELD MACHINIST Height 160 cm (5' 3 ) 08/26/2023 11:45 AM FIELD MACHINIST Body Mass Index 27.63 08/26/2023 11:45 AM FIELD MACHINIST Plan of Treatment Not on file Procedures [...] AM CDT Narrative 05/08/2021 2:32 PM CDT [facility] Department of Pathology [address] [place] [address] Final Report Note to Patients: This report [...] the details. Patient Name: ANGLE KILGORE Address: [address] [place] [address]. #[place] [id number] Gender: F : 2000 (Age: 21) Service: Laboratory Location: Lab [facility] #: [id number] Patient Type: Ref Lab Taken: 05/06/2021 Received: [...] by the Surgical Pathology Department at [facility] as part of an ongoing quality control systems manager program and in compliance with federally [...] characteristics determined by the Surgical Pathology Department [facility]. It has not been cleared or approved by the U. S. Food and Drug Administration. Veena Merida MD LAB CYTOLOGY ORDERABLES Final Result * N. gonorrhoeae/C. trachomatis Amplification Thin prep (05/06/2021 9:53 AM CDT) C. trachomatis Not detected Not detected KAYLA STEWARD N. gonorrhoeae Not detected Not detected KAYLA STEWARD Comment: Testing performed by the [facility] Laboratory. This assay detects Chlamydia trachomatis and Neisseria gonorrhoeae by nucleic acid amplification testing (NAAT). This test is approved by the [facility] Food and Drug Administration and the performance characteristics have been verified by the laboratory. The performance characteristics of this test have not been evaluated in women or individuals less than 16 years of age. Thin prep (None) 05/06/2021 9:53 AM CDT 05/06/2021 3:09 PM CDT Veena Merida MD LAB MICROBIOLOGY - GENERAL ORDERABLES Final Result KAYLA STEWARD [id number] [address] Department [place] [address] from Last 3 Months or Most Recently Relevant to Health Maintenance Insurance [employer] [address] [place] [address] [employer] ACCESS OOS Care Teams Senior Copywriter Relationship Specialty Start Date End Date Latonya Yanes NP PCP - General Family Medicine 06/21/20 Claribel Lorenzana MD [address] [facility] [address] [place] [address] Referring Physician Allergy and Immunology 06/21/20 [place] [id number] [address] [facility] [address] [place] [address] Consulting Physician Obstetrics and Gynecology 05/06/21
--- NOTE | 2024-10-14 06:57 | SUR.PREOP ---
Patient called, she was unable to keep prep down. Patient states she called the MD last night, and he told her to stop taking prep and to reschedule for another day.
[2024-11-07 11:29] VITALS: BMI 26.6
--- NOTE | 2024-11-16 14:25 | WPDANESEPPF ---
Anes - Initial Pre Proc Eval Procedure: Operation Date: 11/17/24 09:00 Proposed Procedures p Colonoscopy - Geo Mills MD Date/Time: 11/16/24 14:25 Surgeon: Geo Mills MD Pre Op Diagnosis: IBS,abd distension,fecal abnormalities Patient Data Age: 24 Gender: F Height: 1.6 m Weight: 68.18 kg Allergies Allergy/AdvReac Type Severity Reaction Status Date / Time cefprozil Allergy Mild DIRRHEA Verified 11/17/24 07:44 Home Medications ?Medication ?Instructions ?Recorded ?Confirmed ?Type albuterol 90 mcg/actuation aerosol 90 mcg inhalation DAILY PRN 05/13/23 10/04/24 History inhaler Shortness Of Breath dicyclomine 10 mg capsule 10 mg PO QID PRN Diarrhea 05/13/23 10/04/24 History desipramine 10 mg tablet 10 mg PO QHS 90 days #90 tabs 01/14/24 11/17/24 Rx omeprazole 40 mg capsule,delayed See Rx Instructions .Route 06/20/24 11/17/24 Rx release .COMPLEX #90 caps sodium sul 1.479 gram-potas ch See Rx Instructions PO PER PKG DIR 10/17/24 11/17/24 Rx 0.188 gram-magnes sul 0.225 gram #24 tabs tablet (Sutab) ondansetron 4 mg disintegrating 4 mg PO QID PRN nausea and vomiting 11/07/24 11/07/24 History tablet Patient hx anesthesia problems: none Family hx anesthesia problems: none Results Review: All pre-operative results and documents have been reviewed as part of the pre-operative evaluation. [facility] Past Medical History Medical History (Updated 11/16/24 @ 14:26 by Quentin Romero DO) Anxiety GERD (gastroesophageal reflux disease) Asthma Nausea and vomiting Positive CHRISTIANO (antinuclear antibody) Duodenitis Gastritis Abdominal distension Abdominal tenderness Regurgitation of food Dysphagia Chronic nausea Abdominal bloating Irritable bowel syndrome with alternating bowel habits BMI 30.0-30.9,adult Surgical History Surgical History History of myringotomy Family History Family History Father No problems noted. Mother Chronic migraine Sibling Asthma Social History Social History Smoking status: Never smoker Second hand tobacco smoke exposure: No Alcohol intake: never Alcohol use details: socially Substance use: current Substance use type: marijuana Other substance usage details: daily Last use: 05/15/23 Lack of Transportation: No Lack of Food: Never True Current Housing: I Have Housing Concerned About Future Housing: No Difficulty Paying Gas/Electric Bills: No Difficulty Paying for Meds: No Currently Unemployed: No Education: Bachelor's Degree Difficulty w/ Childcare or Family Care: No Living arrangements: with roommate(s) Occupation/Education: occupation 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 Informed Consent: The patient's anesthetic plan and its attendant risks and benefits were discussed with the patient/family/POA. Questions were solicited and answers provided to the satisfaction of the patient/family/POA.
--- OUTSIDE RECORDS SUMMARY | 2024-11-17 01:23 | XMS_ITS | Referral Summary ---
Author Organization [facility] Physician Office Building [address] [place] [address] Care Team Providers Care Sales Lead Name Role Phone Latonya Yanes NP Primary Care Provider [phone] Claribel Lorenzana MD Unavailable [phone] Veena Merida MD Unavailable Allergies Active [...] NOSTRIL ONCE DAILY 0 Active vit A-vit A-bqlfkz-ybzk-joshua er 2,500 unit-100 mg-2,500 mcg capsule Take [...] never, due now (has WWE scheduled with N[employer] TIME NANNY); annual clinical breast exam and monthly self [...] CHRISTIANO Assessment & Plan (08/16/2020 9:27 AM COMMUNITY RESOURCE CONSULTANT): Patient is currently being worked up by [...] She was also given resources for [facility] urgent care today. Has failed sertraline and [...] therapy. Assessment & Plan (08/16/2020 9:28 AM COMMUNITY RESOURCE CONSULTANT): Depression is severe. Discussed intensive program for [...] therapy. Assessment & Plan (06/21/2020 11:08 AM COMMUNITY RESOURCE CONSULTANT): Start sertraline, gradually taper up to 50 [...] diarrhea 06/21/2020 Overview (06/29/2020): Constipation noted at ob/gyn nurse office on 06/12/2020. Constipation was seen on [...] consultation. Assessment & Plan (08/16/2020 9:29 AM COMMUNITY RESOURCE CONSULTANT): Improved with Miralax PRN. Assessment & Plan (06/21/2020 11:09 AM COMMUNITY RESOURCE CONSULTANT): Colonoscopy unremarkable 05/02/2011. Recommended treating her anxiety [...] 06/21/2020 Assessment & Plan (08/16/2020 9:29 AM COMMUNITY RESOURCE CONSULTANT): Improved with famotidine 40 mg nightly PRN Likely triggered from anxiety/ stress. Discussed avoiding caffeine, limiting NSAIDS, and avoiding spicy foods that may trigger GERD symptoms. -Avoid eating 2 hours prior to bed. Assessment & Plan (06/21/2020 11:10 AM COMMUNITY RESOURCE CONSULTANT): Start famotidine 40 mg nightly. Likely triggered from anxiety/ stress. Discussed avoiding caffeine, limiting NSAIDS, and avoiding spicy foods that may trigger GERD symptoms. -Avoid eating 2 hours prior to bed. Psoriatic arthritis ([facility]) 06/21/2020 Assessment & Plan (03/04/2021 4:37 PM CDT): Seeing Dr. Mayers with rheumatology. On methotrexate once weekly and folic acid supplementation. Assessment & Plan (06/21/2020 11:07 AM COMMUNITY RESOURCE CONSULTANT): Currently stable. Patient has history of polyarthralgia [...] controlled on current therapy. Managed by her cable armorer. Assessment & Plan (06/21/2020 11:08 AM COMMUNITY RESOURCE CONSULTANT): Asthma is well controlled on current therapy. Managed by her cable armorer. Resolved Problems Problem Noted Date Diagnosed Date Resolved Date IUD (intrauterine device) in place 11/27/2020 09/10/2021 Assessment & Plan (09/10/2021 5:56 PM COMMUNITY RESOURCE CONSULTANT): Mirena IUD removed 05/06/21. Assessment & Plan [...] on file Legal Sex Female 5:13 AM COMMUNITY RESOURCE CONSULTANT Gender Identity Female 06/21/2020 8:16 AM COMMUNITY RESOURCE CONSULTANT Sexual Orientation Not on file Occupation Industry Job Start Date Job End Date Student Not on file Not on file Not on file Last Filed Vital Signs Vital Sign Reading Time Taken Comments Blood Pressure 116/64 08/26/2023 11:45 AM COMMUNITY RESOURCE CONSULTANT Pulse 73 08/26/2023 11:45 AM COMMUNITY RESOURCE CONSULTANT Temperature 36.5 C (97.7 F) 08/26/2023 11:45 AM COMMUNITY RESOURCE CONSULTANT Respiratory Rate 16 08/26/2023 11:45 AM COMMUNITY RESOURCE CONSULTANT Oxygen Saturation 99% 08/26/2023 11:45 AM COMMUNITY RESOURCE CONSULTANT Inhaled Oxygen Concentration - - Weight 70.8 kg (156 lb) 08/26/2023 11:45 AM COMMUNITY RESOURCE CONSULTANT Height 160 cm (5' 3 ) 08/26/2023 11:45 AM COMMUNITY RESOURCE CONSULTANT Body Mass Index 27.63 08/26/2023 11:45 AM COMMUNITY RESOURCE CONSULTANT Plan of Treatment Not on file Procedures [...] AM CDT Narrative 05/08/2021 2:32 PM CDT [facility] Department of Pathology [address] [place] [address] Final Report Note to Patients: This report [...] the details. Patient Name: ANGLE KILGORE Address: [address] [place] [address]. #[place] [address] Gender: F : 2000 (Age: 21) Service: Laboratory Location: Lab [facility] #: [id number] Patient Type: Ref Lab Taken: 05/06/2021 Received: [...] determined by the Surgical Pathology Department at [facility] as part of an ongoing manager quality improvement program and in compliance with federally mandated [...] characteristics determined by the Surgical Pathology Department [facility]. It has not been cleared or approved by the U. S. Food and Drug Administration. Veena Merida MD LAB CYTOLOGY ORDERABLES Final Result * N. gonorrhoeae/C. trachomatis Amplification Thin prep (05/06/2021 9:53 AM CDT) C. trachomatis Not detected Not detected KAYLA STEWARD N. gonorrhoeae Not detected Not detected KAYLA STEWARD Comment: Testing performed by the [facility] Laboratory. This assay detects Chlamydia trachomatis and Neisseria gonorrhoeae by nucleic acid amplification testing (NAAT). This test is approved by the [facility] Food and Drug Administration and the performance characteristics have been verified by the laboratory. The performance characteristics of this test have not been evaluated in women or individuals less than 16 years of age. Thin prep (None) 05/06/2021 9:53 AM CDT 05/06/2021 3:09 PM CDT Veena Merida MD LAB MICROBIOLOGY - GENERAL ORDERABLES Final Result KAYLA STEWARD [id number] Department [place] [address] from Last 3 Months or Most Recently Relevant to Health Maintenance Insurance [employer] [address] [place] [address] [email or web address] ACCESS OOS Care Teams Sales Lead Relationship Specialty Start Date End Date Latonya Yanes NP PCP - General Family Medicine 06/21/20 Claribel Lorenzana MD [address] [facility] [address] [place] [address] Referring Physician Allergy and Immunology 06/21/20 [place] [address] [address] [facility] [address] [place] [address] Consulting Physician Obstetrics and Gynecology 05/06/21
--- OUTSIDE RECORDS SUMMARY | 2024-11-17 01:23 | XMS_ITS | Clinical Summary ---
Author Organization [facility] Address [address] [place] [address] Care Team Providers Care Tufter Name Role Phone Rowena East MD Primary Care Provider [phone] Social History Tobacco Use Types Packs/Day Years [...] Vaccine ( - 2023-2 5 season) 2024 Meningococcal B Vaccine Aged Out No l onger eligible based on patient's age to complete this topic Meningococcal Vaccine Aged Out No octavia iris eligible based on patient's age to complete this topic Pneumococcal Vaccine: Pediat rics (0 to 5 Years) and At-Risk Patients (6 to 49 Years) Aged Out No longer eligible b ased on patient's age to complete this topic RSV Immunizations Under 20 Months Aged Out No longer eligible based on patient's age to complete this topic Insurance [facility] Care Teams Tufter Relationship Specialty Start Date End Date Rowena East MD PCP - General FAMILY PRACTICE 11/19/22
--- OUTSIDE RECORDS SUMMARY | 2024-11-17 01:23 | XMS_ITS | Clinical Summary ---
Author Organization [facility] Physician Office Building [address] [place] [id number] Care Team Providers Care Weather Forecaster Name Role Phone Latonya Yanes NP Primary Care Provider [phone] Claribel Lorenzana MD Unavailable [phone] Veena Merida MD Unavailable Allergies Active [...] NOSTRIL ONCE DAILY 0 Active vit A-vit W-pelzix-xqcg-joshua er 2,500 unit-100 mg-2,500 mcg capsule Take [...] never, due now (has WWE scheduled with ELECTRICAL TESTS SUPERVISOR); annual clinical breast exam and monthly [...] normal BMI. Continue diet and exercise Positive CRHISTIANO (antinuclear antibody) 07/04/2020 Overview (07/04/2020): 06/21/2020 referral placed to rheumatology for positive CHRISTIANO Assessment & Plan (08/16/2020 9:27 AM POLICY AND PLANNING MANAGER): Patient is currently being worked up by [...] through. She was also given resources for [facility] urgent care today. Has failed [...] therapy. Assessment & Plan (08/16/2020 9:28 AM POLICY AND PLANNING MANAGER): Depression is severe. Discussed intensive program for [...] therapy. Assessment & Plan (06/21/2020 11:08 AM POLICY AND PLANNING MANAGER): Start sertraline, gradually taper up to 50 [...] diarrhea 06/21/2020 Overview (06/29/2020): Constipation noted at unix system administrator office on 06/12/2020. Constipation was seen on [...] consultation. Assessment & Plan (08/16/2020 9:29 AM POLICY AND PLANNING MANAGER): Improved with Miralax PRN. Assessment & Plan (06/21/2020 11:09 AM POLICY AND PLANNING MANAGER): Colonoscopy unremarkable 05/02/2011. Recommended treating her anxiety [...] 06/21/2020 Assessment & Plan (08/16/2020 9:29 AM POLICY AND PLANNING MANAGER): Improved with famotidine 40 mg nightly PRN Likely triggered from anxiety/ stress. Discussed avoiding caffeine, limiting NSAIDS, and avoiding spicy foods that may trigger GERD symptoms. -Avoid eating 2 hours prior to bed. Assessment & Plan (06/21/2020 11:10 AM POLICY AND PLANNING MANAGER): Start famotidine 40 mg nightly. Likely triggered from anxiety/ stress. Discussed avoiding caffeine, limiting NSAIDS, and avoiding spicy foods that may trigger GERD symptoms. -Avoid eating 2 hours prior to bed. Psoriatic arthritis ([facility]) 06/21/2020 Assessment & Plan (03/04/2021 4:37 PM CDT): Seeing Dr. Mayers with rheumatology. On methotrexate once weekly and folic acid supplementation. Assessment & Plan (06/21/2020 11:07 AM POLICY AND PLANNING MANAGER): Currently stable. Patient has history of polyarthralgia [...] controlled on current therapy. Managed by her loft worker head. Assessment & Plan (06/21/2020 11:08 AM POLICY AND PLANNING MANAGER): Asthma is well controlled on current therapy. Managed by her loft worker head. Resolved Problems Problem Noted Date Diagnosed Date Resolved Date IUD (intrauterine device) in place 11/27/2020 09/10/2021 Assessment & Plan (09/10/2021 5:56 PM POLICY AND PLANNING MANAGER): Mirena IUD removed 05/06/21. Assessment & Plan [...] on file Legal Sex Female 5:13 AM POLICY AND PLANNING MANAGER Gender Identity Female 06/21/2020 8:16 AM POLICY AND PLANNING MANAGER Sexual Orientation Not on file Occupation Industry Job Start Date Job End Date Student Not on file Not on file Not on file Obstetrics History Para Term AB IAB SAB Ectopic Multiple Livin g Live Births 0 0 0 0 0 0 0 0 0 0 0 Last Filed Vital Signs Vital Sign Reading Time Taken Comments Blood Pressure 116/64 08/26/2023 11:45 AM POLICY AND PLANNING MANAGER Pulse 73 08/26/2023 11:45 AM POLICY AND PLANNING MANAGER Temperature 36.5 C (97.7 F) 08/26/2023 11:45 AM POLICY AND PLANNING MANAGER Respiratory Rate 16 08/26/2023 11:45 AM POLICY AND PLANNING MANAGER Oxygen Saturation 99% 08/26/2023 11:45 AM POLICY AND PLANNING MANAGER Inhaled Oxygen Concentration - - Weight 70.8 kg (156 lb) 08/26/2023 11:45 AM POLICY AND PLANNING MANAGER Height 160 cm (5' 3 ) 08/26/2023 11:45 AM POLICY AND PLANNING MANAGER Body Mass Index 27.63 08/26/2023 11:45 AM POLICY AND PLANNING MANAGER Plan of Treatment Health Maintenance Due Date [...] AM CDT Narrative 05/08/2021 2:32 PM CDT [facility] Department of Pathology [address] [place] [address] Final Report Note to Patients: This report [...] the details. Patient Name: MINO KILGORE Address: [address] [place] [address]. #[place] [address] Gender: F : 2000 (Age: 21) Service: Laboratory Location: Lab [facility] #: [id number] Patient Type: Ref Lab Taken: 05/06/2021 Received: [...] determined by the Surgical Pathology Department at [facility] as part of an ongoing quality systems engineer program and in compliance with federally mandated [...] characteristics determined by the Surgical Pathology Department [facility]. It has not been cleared or approved by the [place]. S. Food and Drug Administration. Veena Merida MD LAB CYTOLOGY ORDERABLES Final Result * N. gonorrhoeae/C. trachomatis Amplification Thin prep (05/06/2021 9:53 AM CDT) C. trachomatis Not detected Not detected KAYLA STEWARD N. gonorrhoeae Not detected Not detected KAYLA STEWARD Comment: Testing performed by the [facility] Laboratory. This assay detects Chlamydia trachomatis and Neisseria gonorrhoeae by nucleic acid amplification testing (NAAT). This test is approved by the [facility] Food and Drug Administration and the performance characteristics have been verified by the laboratory. The performance characteristics of this test have not been evaluated in women or individuals less than 16 years of age. Thin prep (None) 05/06/2021 9:53 AM CDT 05/06/2021 3:09 PM CDT Veena Merida MD LAB MICROBIOLOGY - GENERAL ORDERABLES Final Result KAYLA STEWARD [id number] Department [place] [address] from Last 3 Months or Most Recently Relevant to Health Maintenance Insurance [employer] OOS TIME PLUS Q ACCESS OOS Care Teams Weather Forecaster Relationship Specialty Start Date End Date Latonya Yanes NP PCP - General Family Medicine 06/21/20 Claribel Lorenzana MD [address] [facility] [address] [place] [address] Referring Physician Allergy and Immunology 06/21/20 [place] [address] [place] [address] Consulting Physician Obstetrics and Gynecology 05/06/21
--- OUTSIDE RECORDS SUMMARY | 2024-11-17 01:23 | XMS_ITS | Continuity of Care Document ---
Author Organization [facility] Address [address] [facility] [place] [address] Phone Care Team Providers Care Tax Senior Associate Name Role Phone Juan Antonio Martin MD [...] Effective Dates (start - stop) Status Comments ZYRTEC (unknown strength) Not Available - Active NASONEX (unknown strength) Not Available - Active QVAR (unknown strength) Not Available - Active Procedures [...] on Encounter OFFICE/OUTPA TIENT VISIT EST [facility], [address] [place], [place] [address], [place], [address], tel:[phone] [facility] Patellofemoral stress syndrome of right knee Sep-2 201 7 Mario Romano. [address] [place] [address], [id number] . tel:[phone] OFFICE/OUTPA TIENT VISIT EST [facility], [address], [address], [place] tel:[phone] [facility] Patellofemoral stress syndrome of right knee Aug-0 8-201 7 Stazzone Juan Antonio. [address] [place], [place], [id number] . tel: [phone] OFFICE/OUTPA TIENT VISIT EST [facility], [address], [address], [place] tel:[phone] [facility] Patellofemoral stress syndrome of right knee 5-201 7 Stazzone Juan Antonio. [address] [place], [place], [id number] . tel: [phone] OFFICE/OUTPA TIENT VISIT [facility], [address], [address], [place] tel:[phone] [facility] Patellofemoral stress syndrome of right knee November-3 0-201 7 Stazzone Juan Antonio. [address] [place], [place], [id number] . tel: [phone] [facility], [address] [place] [address], [address], [place] tel:[phone] [facility] Patellofemoral stress syndrome of right knee November-2 5-201 7 Stazzone Juan Antonio. [address] [place], [place], [id number] . tel: [phone] OFFICE/OUTPA TIENT VISIT [facility], [address] [place] [address], [address], [place] tel:[phone] [facility] Patellofemoral stress syndrome of right knee Apr-2 0-201 7 Stazzone Juan Antonio. [address] [place], [place], [id number] . tel: [phone] OFFICE/OUTPA TIENT VISIT [facility], [address] [facility] [address], [place], [address], [place] tel:[phone] [facility] Patellofemoral stress syndrome of right knee Sep- 7 Stazzone Juan Antonio. [address] [place], [place], [id number] . tel: [phone] OFFICE/OUTPA TIENT VISIT [facility], [address] [place] [address], [place], [address], [place] tel:[phone] [facility] Patellofemoral stress syndrome of right kneeShin splints, right, subsequent encounter Sep-0 7 Stazzone Juan Antonio. [address] [place] [address], [id number] . tel: [phone] OFFICE/OUTPA TIENT VISIT [facility], [address], [address], [place] tel:[phone] [facility] Right foot painShin splints, right, subsequent encounter 7 Stazzone Juan Antonio. [address] [place] [address], [id number] . tel: [phone] OFFICE/OUTPA TIENT VISIT [facility], [address] [place] [address], [address], [place] tel:[phone] [facility] Pain of right lower extremityShin splints, right, initial encounterRight foot pain 7 Stazzone Juan Antonio. [address] [place] [address], [id number] . tel: [phone] [facility], [address] [place] [address], [address], [place] tel:[phone] [facility] Medial tibial stress syndrome, right, subsequent encounter Sep- 3-201 6 Azul Prerna. [address] [place] [address], [address], [place], [place], [id number] . tel: [phone] [facility], [address] [facility] [address], [place], [address], [place] tel:[phone] [facility] Medial tibial stress syndrome, right, subsequent encounter 6 Azul Prerna. [address] [facility], [address], [place], [place], [id number] . tel: [phone] [facility], [address] [facility] [address], [place], [address], [place] tel:[phone] [facility] Right leg pain 6 Azul Prerna. [address] [facility], [address], [place], [place], [id number] . tel: [phone] [facility], [address] [facility] [address], [place], [address], [place] tel:[phone] [facility] Medial tibial stress syndrome, right, subsequent encounter 0 6 Azul Prerna. [address] [facility], [address], [place], [place], [id number] . tel: [phone] [facility], [address] [facility] [address], [place], [address], [place] tel:[phone] [facility] Medial tibial stress syndrome, right, initial encounter 6 Azul Prerna. [address] [facility], [address], [place], [place], [id number] . tel: [phone] [facility], [address] [place] [address], [place], [address], [place] tel:[phone] [facility] foot (chief complaint) Right ankle tendonitis 4 Azul Prerna. [address] [facility], [address], [place], [place], [id number] . tel: [phone] Family History Family Member Type Diagnosis Age At Onset No Information Payers Payer name Insurance type Covered alliance party ID Authormoniquea tiajay(s) [facility] Choice/Choice Plus [id number] [id number] Social History Type Description Quantity Date Captured [...]
[2024-11-17 07:44] VITALS: BP 107/48; PULSE 71; RESP 18; TEMP 36.1; O2SAT 100; BMI 26.9
[2024-11-17] MEDS: LACTATED RINGERS 1,000 ML 150 ML IV CONT (08:01)
--- NOTE | 2024-11-17 08:35 | PM.HPGS ---
History of Present Illness History of Present Illness Consent: Risks, benefits, and alternatives have been discussed and questions answered. Patient agrees to proceed with procedure. Chief complaint: IBS,abd distension,fecal abnormalities Narrative: Angle Kilgore is a 24 year old female with intermittent lower abdominal pain, also constipation. Had colonoscopy at [address] scan abd normal Review of Systems Review of Systems: All systems reviewed & are unremarkable except as noted in HPI and below PMFSH Past Medical History Medical History (Updated 11/16/24 @ 14:26 by Quentin Romero DO) Anxiety GERD (gastroesophageal reflux disease) Asthma Nausea and vomiting Positive CHRISTIANO (antinuclear antibody) Duodenitis Gastritis Abdominal distension Abdominal tenderness Regurgitation of food Dysphagia Chronic nausea Abdominal bloating Irritable bowel syndrome with alternating bowel habits BMI 30.0-30.9,adult Surgical History Surgical History History of myringotomy Family History Family History Father No problems noted. Mother Chronic migraine Sibling Asthma Social History Social History Smoking status: Never smoker Second hand tobacco smoke exposure: No Alcohol intake: never Alcohol use details: socially Substance use: current Substance use type: marijuana Other substance usage details: daily Last use: 05/15/23 Lack of Transportation: No Lack of Food: Never True Current Housing: I Have Housing Concerned About Future Housing: No Difficulty Paying Gas/Electric Bills: No Difficulty Paying for Meds: No Currently Unemployed: No Education: Bachelor's Degree Difficulty w/ Childcare or Family Care: No Living arrangements: with roommate(s) Occupation/Education: occupation 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 Gender identity (if verbalized by the patient): Female Spiritual care concerns: No Meds Home Medications and Allergies Home Medications ?Medication ?Instructions ?Recorded ?Confirmed ?Type albuterol 90 mcg/actuation aerosol 90 mcg inhalation DAILY PRN 05/13/23 10/04/24 History inhaler Shortness Of Breath dicyclomine 10 mg capsule 10 mg PO QID PRN Diarrhea 05/13/23 10/04/24 History desipramine 10 mg tablet 10 mg PO QHS 90 days #90 tabs 01/14/24 11/17/24 Rx omeprazole 40 mg capsule,delayed See Rx Instructions .Route 06/20/24 11/17/24 Rx release .COMPLEX #90 caps sodium sul 1.479 gram-potas ch See Rx Instructions PO PER PKG DIR 10/17/24 11/17/24 Rx 0.188 gram-magnes sul 0.225 gram #24 tabs tablet (Sutab) ondansetron 4 mg disintegrating 4 mg PO QID PRN nausea and vomiting 11/07/24 11/07/24 History tablet Allergies Allergy/AdvReac Type Severity Reaction Status Date / Time cefprozil Allergy Mild DIRRHEA Verified 11/17/24 07:44 Vital Signs Vital Signs - 24 hr 11/17/24 07:44 Temperature 97.0 F L Pulse Rate 71 Respiratory Rate 18 Blood Pressure 107/48 L Pulse Oximetry 100 Oxygen Delivery Room Air Exam Const: General: comfortable and no acute distress HENMT: Face/Nose/Sinus: Normal nares present Eyes: General: appearance normal, both eyes and all related structures Neck: Neck: no JVD Resp: Auscultation: clear to auscultation bilaterally Cardio: Rate: regular rate Rhythm: regular rhythm GI: Inspection: non-distended GI Palp: Yes Soft to palpation Skin: General skin exam: normal color Neuro: General: gait normal Speech: normal speech Extrem: General: normal to inspection Psych: Mental Status: mental status grossly normal Assessment and Plan Assessment and plan (1) Irritable bowel syndrome with alternating bowel habits: Code(s): K58.2 - Mixed irritable bowel syndrome Status: Acute Assessment and Plan: colonoscopy (2) Abdominal distension: Code(s): R14.0 - Abdominal distension (gaseous) Status: Acute
[2024-11-17 08:49] VITALS: BP 81/38; PULSE 72; RESP 18; O2SAT 100
[2024-11-17 08:50] LABS: BEDSIDEPREGUCG Negative (Negative)
[2024-11-17 08:59] VITALS: BP 92/46; PULSE 62; RESP 15; O2SAT 100
[2024-11-17 09:09] VITALS: BP 109/56; PULSE 66; RESP 14; O2SAT 100
== END 2024-11-17 09:17 | disposition home or self-care (01) ==
PROVIDERS: Referring Provider Nurse Practitioner; Visit Provider Internal Medicine Gastroenterology
PROC: 0DJD8ZZ Inspection of Lower Intestinal Tract, Via Natural or Artificial Opening Endoscopic (ICD-10-PCS; CPT 45378; principal; 2024-11-17 09:00)
DX: R19.5 Other fecal abnormalities (principal); K58.2 Mixed irritable bowel syndrome; K21.9 Gastro-esophageal reflux disease without esophagitis; R11.0 Nausea; F41.9 Anxiety disorder, unspecified; J45.909 Unspecified asthma, uncomplicated; F12.90 Cannabis use, unspecified, uncomplicated; Z79.51 Long term (current) use of inhaled steroids; Z98.890 Other specified postprocedural states
CPT/HCPCS: 45380; 88305; J2003; J2704; J7120